=== PATIENT | female | born 1935 | race Caucasian/White ===

== ENCOUNTER 2019-11-16 17:50 | Inpatient (IN) ==
[2019-11-16] MEDS ORDERED: ONDANSETRON INJ 2 MG/ML 2 ML VIAL IV PRN (22:56)
[2019-11-16] MEDS ORDERED: POLYETHYLENE (MIRALAX) 17 GM PACK PO PRN (22:56)
[2019-11-16] MEDS ORDERED: MECLIZINE HCL 25 MG TAB PO PRN (23:01)
[2019-11-16 23:17] LABS: Hematocrit (blood only) 30.5 % (37-47); Hemoglobin 9.7 g/dL (12.0-16.0); Mean Corpuscular Hemoglobin 29.3 pg (25-34); Mean Corpuscular Hgb Conc 31.8 g/dL (32-36); Mean Corpuscular Volume 92.1 fL (80-100); Mean Platelet Volume 11.4 fL (7.4-10.4); Platelet Count 162 K/uL (130-400); RDW Coefficient of Variation 13.9 % (11.5-14.5); Red Blood Count 3.31 M/uL (4.2-5.4); White Blood Count 10.56 K/uL (4.8-10.8)
[2019-11-16 23:26] LABS: INR 1.1 (0.9-1.1); Partial Thromboplastin Ratio 0.8; Partial Thromboplastin Time 22.4 Seconds (21.0-31.0); Prothrombin Time 11.4 Seconds (9.0-12.0)
[2019-11-16 23:34] LABS: Albumin Level 3.2 gm/dl (3.4-5.0); BUN Creatinine Ratio 23.1 (10-20); Calcium 8.5 mg/dl (8.5-10.1); Creatinine Clr Calc Pharmacy 35.1 ml/min; Est GFR (African American) 66.2; Est GFR (Non-African American) 57.1
[2019-11-16 23:45] LABS: Albumin Globulin Ratio 0.9 (0.9-2); Bilirubin,Total 0.6 mg/dl (0.2-1); Globulin 3.5 gm/dl (2.5-4.0); Thyroid Stimulating Hormone 1.36 uIu/ml (0.300-4.500); Total Protein 6.7 gm/dl (6.4-8.2)
[2019-11-16 23:49] LABS: Basophils # (auto) 0.02 K/uL (0-0.2); Basophils % (auto) 0.2 %; Immature Granulocytes # (auto) 0.03 K/uL (0.00-0.02); Immature Granulocytes % (auto) 0.3 %; Lymphocytes # (auto) 0.61 K/uL (1.2-3.4); Lymphocytes % (auto) 5.8 %; Monocytes # (auto) 0.51 K/uL (0.11-0.59); Monocytes % (auto) 4.8 %; Neutrophils # (auto) 9.39 K/uL (1.4-6.5); Neutrophils % (auto) 88.9 %
[2019-11-16] MEDS: SODIUM CHLORIDE 0.9% 1000ML 1,000 ML IV SCH (23:55)
--- NOTE | 2019-11-17 00:32 | History and Physical Report ---
DATE OF ADMISSION: 11/16/2019 CHIEF COMPLAINT: Status post fall and right hip fracture. HISTORY OF PRESENT ILLNESS: This 84-year-old female with past medical history significant for senile osteoporosis, vitamin D deficiency, bilateral hearing loss, history of left hip fracture, who was transferred from [facility] for right hip fracture. The patient lives alone. She has a walker and cane at home. Generally, she does not use it, but since last one week she is using cane because she was feeling dizzy and her family doctor gave her meclizine .. She lives alone. One daughter lives close across the street, today she went to water her plants and go and she was going to go back home and her side walk is little raised and she tripped over it and fell down and she could not get up and she yelled for help, and stayed there for about almost of an hour and then she was taken to the [facility]. On the way to [facility], she was nauseous and had some vomiting. In the [facility], CT of the head and CT of the cervical spine was unremarkable and the x-rays showed displaced intertrochanteric fracture of the right hip and was transferred to [facility]. The patient is currently resting comfortably and hemodynamically stable. She says she did not have much pain now. Otherwise, she says she is doing fine. Denies any other complaints. She says she is on regular diet. She can swallow okay. Denies any cough, no fever, no chills, no shortness of breath, no chest pain, no loss of sense of smell or taste. No headache. She uses glasses for vision. Somewhat hard of hearing. No runny nose, no sore throat. No abdominal pain. Normal bowel and bladder movements. No blood in the stools or burning micturition. No rash anywhere. Also spoke with her daughter, Ms. Juarez who confirmed what happened and the daughter says the patient has a note at home that she is DNR, but when asked about whether there is a chance of recovery still they want to be DNR, but daughter says only for a very short period of time she can be full code if there is a chance of recovery. ALLERGIES: IBUPROFEN AND VALIUM. PAST MEDICAL HISTORY: As mentioned above. Hypothyroidism. PAST SURGICAL HISTORY: Fracture of the left hip and total hip replacement, fracture of the left wrist, and radius and ulna fixation. MEDICATIONS: The patient is currently on alendronate 70 mg p.o. weekly, levothyroxine 25 mcg p.o. daily, meclizine 25 mg p.o. t.i.d. p.r.n. FAMILY HISTORY: Significant for father had lung cancer, in his 70s and also family history all significant for thyroid problems. Mother had breast cancer, heart disorder, at age of 81. REVIEW OF SYMPTOMS: As per HPI. Rest of review of symptoms negative. PHYSICAL EXAMINATION: GENERAL: The patient is old and frail, not in acute distress. VITAL SIGNS: temperature 36.4, respiratory rate 20, blood pressure 125/69, oxygen 95% on room air. HEENT: No pallor, no icterus. NECK: No JVD, no neck masses. CARDIOVASCULAR: S1, S2 heard, regular rate and rhythm, no murmur, no gallop. RESPIRATORY SYSTEM: Normal AP diameter. No accessory muscle use. No wheezing, no crackles. ABDOMEN: Soft, bowel sounds present, nontender. No distention. CENTRAL NERVOUS SYSTEM: Alert and oriented x3. Can tell today is October 2019, but has some difficulty with dates, can tell her date of , obeys simple commands. Speech is clear. Insight is good. EXTREMITIES: Right lower extremity is shortened and externally rotated. No erythema seen. No edema seen. LABORATORY DATA: Unavailable at this time. ASSESSMENT AND PLAN: This is an 84-year-old female who presents with fall at home, mechanical fall and found to have right hip fracture at [facility]. 2. Right hip fracture: The patient currently is not in pain. We will follow the labs and EKG and chest x-ray. If they are unremarkable, patient should be at acceptable risk to proceed with surgery. Does not have any significant medical problems. 3. Hypothyroidism: Continue Synthroid. 4. History of dizziness: On meclizine p.r.n. 6. Osteoporosis: On alendronate. We will also add calcium and vitamin D. 7. Deep venous thrombosis prophylaxis: Cannot place sequential compression devices because of hip fracture and cannot place anticoagulation because of plan for surgery in a.m. Postop deep venous thrombosis prophylaxis as per Orthopedics. DISPOSITION: Admit to medical floor. PT and OT prior to discharge. Social Service to help with discharge planning. Code status, full code for now only if there is a chance of recovery. MTDD
[2019-11-17] MEDS: MoRPHine SULFATE 2 MG/ML CARP IV PRN ×2 (02:55→19:49)
[2019-11-17] MEDS ORDERED: CEFAZOLIN 1000MG 1,000 MG/7.5 ML SYR IV SCH (06:00)
[2019-11-17] MEDS: LEVOTHYROXINE SODIUM 25 MCG TABLET PO SCH (06:13)
--- NOTE | 2019-11-17 07:44 | XRay Report ---
XR femur RT 2V routine, XR hip 1V RT w pelvis CLINICAL HISTORY: right hip fracture/fall COMPARISON STUDY: None. FINDINGS: Comminuted, displaced, angulated intertrochanteric fracture of the proximal right femur. No dislocation. Soft tissue swelling within the right hip. The mid to distal right femur is intact. Jordyn or internal fixation of an old, healed left hip fracture. Deformity within the right pubic ring likel y represents old, healed fractures. IMPRESSION: Comminuted, displaced, and angulated intertrochanteric fracture of the proximal right fe mur. ACT 112: Negative or not required by law. Electronically signed by: Howard Tirado M.D. 11/17/2019 7:43 AM
[2019-11-17] MEDS: CALCIUM 600MG + VIT D 400 IU TAB PO SCH ×2 (08:24→21:14)
--- NOTE | 2019-11-17 08:34 | XRay Report ---
XR chest 1V portable CLINICAL HISTORY: Preoperative evaluation. COMPARISON STUDY: Chest radiograph November 16, 2019. FINDINGS: Lung volumes are normal. Minimal linear left basilar opacity suggest atelectasis. There is no pneumothorax or pleural effusion. Cardiac size is normal. Mediastinal contours are normal. There i s no evidence for pulmonary edema. Incidental note is made of old bilateral rib fractures. IMPRESSION: No acute cardiopulmonary findings. ACT 112: Negative or not required by law. Electronically signed by: Freedom Whitley M.D. 11/17/2019 8:32 AM
--- NOTE | 2019-11-17 09:38 | Electrocardiogram Report ---
Test Reason : Blood Pressure : / mmHG Vent. Rate : 094 BPM Atrial Rate : 094 BPM P-R Int : 122 ms QRS Dur : 066 ms QT Int : 370 ms P-R-T Axes : 070 016 067 degrees QTc Int : 462 ms Normal sinus rhythm Diffuse Nonspecific ST and T wave abnormality Abnormal ECG Confirmed by Sukumar Lucas ([id number]) on 11/17/2019 9:37:51 AM Referred By: Simón Torres Confirmed By:Sukumar Lucas
--- NOTE | 2019-11-17 10:04 | Hospitalist Progress Note ---
Date of Service November 17, 2019 Assessment & Plan (1) Hip fracture: ASSESSMENT AND PLAN: This is an 84-year-old female who presents with fall at home, mechanical fall and found to have right hip fracture at [facility]. 2. Right hip fracture: Monitor daily labs, May proceed to OR from IM standpoint, Benefit>Risk 3. Hypothyroidism: Continue Synthroid. 4. History of dizziness: On meclizine p.r.n. 6. Osteoporosis: On alendronate. We will also add calcium and vitamin D. 7. Deep venous thrombosis prophylaxis: Cannot place sequential compression devices because of hip fracture and cannot place anticoagulation because of plan for surgery in a.m. Postop deep venous thrombosis prophylaxis as per Orthopedics. DISPOSITION: Medical floor. PT and OT prior to discharge. Social Service to help with discharge planning. Code status, full code for now only if there is a chance of recovery. Labs Checked ROS-No Headache, No Visual Changes, No Nausea, No Vomiting, No Fever, No Chills, No Neck Pain or Stiffness, No Chest Pain, No Palpitations, No SOB, No TUBBS, No Cough, No Sputum, No Wheezing, No Abdominal Pain, No Diarrhea, No Hematemesis, No Hemoptysis, No Unexpected Weight Loss, No Flank pain, No Melena, No Hematochezia, No Frequency, No Urgency, No Burning, No Hematuria, No Rashes, No Diaphoresis. Appetite is Normal, Sore R Hip Physical Exam Gen-AAO x 3, NAD, Afebrile, Pleasant Head-NCAT, EOMI, PERRLA, Anicteric Sclera, No Posterior Pharyngeal Erythema Neck-Supple, No JVD, No Thyromegaly, No Masses, No LAD, No Bruits Lungs-Clear to Auscultation Bilaterally, No Rales, No Rhonchi, No Wheezing, No Crepitus Chest-No S4, +S1, +S2, No S3, No Murmurs, No Rubs, No Gallops, No Ectopy Abdomen-Soft, Bowel Sounds Present, Non Tender, Non Distended, No Hepatomegaly, No Splenomegaly, No Palpable Masses, No Rebound, No Rigidity, No Guarding Musculoskeletal-Full Range of Motion Bilaterally, No CVAT Extremities-No Cyanosis, No Clubbing, No Edema Nuero-Cranial Nerves II-XII grossly intact, Motor WNL, DTRs WNL, Strength WNL, Non Focal Psych-Normal Mood Admission and Anticipated Discharge Date Admission Date: November 16, 2019 Results & Data Results & Data ([facility]) Vital Signs (Past 12 Hours) Vital Signs Temp Pulse Resp BP Pulse Ox 11/17/19 07:34 36.9 C 102 H 18 123/66 96
[2019-11-17] MEDS: SODIUM CHLORIDE 0.9% 1000ML 1,000 ML IV SCH ×2 (12:46→21:15)
--- NOTE | 2019-11-17 13:07 | Anesthesiology Consultation ---
Date of Service November 17, 2019 Assessment & Plan (1) Encounter for pre-operative examination: History Surgery Operation Date: 11/17/19 10:00 Proposed Procedures p Right Hip Trochanteric Nail Cricket - El Mann DO Height/Weight Height: 5 ft 2 in Weight: 52.8 kg Allergies Allergy/AdvReac Type Severity Reaction Status Date / Time No Known Allergies Allergy Unverified 11/16/19 22:55 Medications Home Medications Medication Instructions Recorded Confirmed Last Taken alendronate 70 mg PO WK 11/16/19 11/16/19 Unknown levothyroxine 25 mcg PO DAILY 11/16/19 11/16/19 Unknown meclizine 25 mg PO TID PRN 11/16/19 11/16/19 Unknown Active Medications Generic Name Dose Route Start Last Admin Trade Name Freq PRN Reason Stop Dose Admin Sodium Chloride 1,000 mls @ 80 mls/hr 11/16/19 22:56 11/17/19 12:46 Nss 1000ml IV 12/16/19 22:55 80 mls/hr .[id number] CONCETTA Administration Levothyroxine Sodium 25 mcg 11/17/19 06:30 11/17/19 06:13 Synthroid PO 12/17/19 06:29 25 mcg DAILYBB CONCETTA Administration Morphine Sulfate 2 mg 11/16/19 22:56 11/17/19 02:55 Morphine Sulfate IV 11/30/19 22:55 2 mg Q4H PRN Administration Pain Multivitamins/Minerals 1 tab 11/17/19 09:00 11/17/19 08:24 Caltrate Plus PO 12/17/19 08:59 Not Given BID CONCETTA NPO Date Last Intake of Fluids: 11/17/19 Time Last Intake of Fluids: 00:00 Date Last Intake of Solids: 11/16/19 Past Medical History hx hypothyrodisim hx osteoporosis hx fall with R hip fracture hx dizziness Social History Smoking Status: Never smoker Hx Alcohol Use: No Hx Substance Use: No Physical Exam Vital Signs Last Vital Signs Temp 36.8 C 11/17/19 14:25 Pulse 109 H 11/17/19 14:25 Resp 20 11/17/19 14:25 BP 136/79 11/17/19 14:25 Pulse Ox 97 11/17/19 14:25 Testing Laboratory Results 11/16/19 23:07 11/16/19 23:07 PT 11.4 Seconds (9.0-12.0) 11/16/19 23:07 INR 1.1 (0.9-1.1) 11/16/19 23:07 APTT 22.4 Seconds (21.0-31.0) 11/16/19 23:07 Blood Type A Positive 11/17/19 09:54 Antibody Screen NEGATIVE 11/17/19 09:54 Electrocardiogram Date: 11/16/19 Normal sinus rhythm Diffuse Nonspecific ST and T wave abnormality Abnormal ECG Chest X-Ray Date: 11/17/19 Findings: + NAD
[2019-11-17] MEDS ORDERED: fentaNYL citrate 100 MCG/2 ML VIAL ONE (14:18)
--- NOTE | 2019-11-17 14:45 | Orthopedic Consultation ---
Date of Consultation November 17, 2019 Assessment & Plan (1) Closed intertrochanteric fracture of right femur: The patient is a 84yo female with displaced right intertrochanteric hip fracture sustained after a fall from standing height. The patient was medically stabilized on 11/17/2019. I indicated the patient for right hip cephalomedullary nail. The patient and daughter was informed of the risks and benefits of surgery, which include but not limited to infection, bleeding, blood clots, damage to nerves, vessels, bone and soft tissue, dislocation, leg length discrepancy, malunion, nonunion, failure of the implants, need for additional surgery and . The patient and daughter collectively chose to proceed with surgical intervention and informed consent was obtained. History of Present Illness Reason for Consultation: Right intertrochanteric hip fracture Attending Physician: Florencio Anderson DO History of Present Illness The patient is an 84-year-old female who presented to [facility] on 11/16/2019 after sustaining a mechanical fall from standing height while watering her yard yesterday. She initially was seen at [facility], diagnosed with right intertrochanteric hip fracture and transferred to [facility] for further care of her right hip fracture. Patient denies hitting head or loss of consciousness. Denies any associated injuries or numbness and tingling to her right lower extremity. Pain well controlled. Allergies Allergy/AdvReac Type Severity Reaction Status Date / Time No Known Allergies Allergy Unverified 11/16/19 22:55 Home Medications Home Medications Medication Instructions Recorded Confirmed Type alendronate 70 mg PO WK 11/16/19 11/16/19 History levothyroxine 25 mcg PO DAILY 11/16/19 11/16/19 History meclizine 25 mg PO TID PRN 11/16/19 11/16/19 History Patient History Social History Preferred Language: Chinese Communication Ability: Effective Beliefs That Will Affect Care: None Current Living Situation: Alone Other Information That Helps Us Care for You: No Feels Safe at Home: Yes Safety Concerns: Feels Safe At This Time Smoking Status: Never smoker Hx Alcohol Use: No Hx Substance Use: No Review of Systems Review of Systems: All systems reviewed & are unremarkable except as noted in HPI & below Constitutional: as per Subjective / HPI Physical Exam Physical Exam: RLE NVSI +EHL/FHL/TA/GS SILT grossly, +2 DP pulse, compartments soft nontender, short and externally rotated, skin overlying right hip clean dry and intact. Constitutional: WD/WN, vitals as above Results & Data ([facility]) Vital Signs (Past 12 Hours) Vital Signs Temp Pulse Pulse Resp BP Pulse Ox 11/17/19 14:25 36.8 C 109 H 20 136/79 97 11/17/19 07:34 36.9 C 102 H 18 123/66 96 Laboratory Results Lab Results 11/16/19 11/16/19 11/16/19 Range/Units 23:07 23:07 23:07 WBC 10.56 (4.8-10.8) K/uL RBC 3.31 L (4.2-5.4) M/uL Hgb 9.7 L (12.0-16.0) g/dL Hct 30.5 L (37-47) % MCV 92.1 (80-100) fL MCH 29.3 (25-34) pg MCHC 31.8 L (32-36) g/dL RDW Std Deviation 47.0 H (36.4-46.3) fL RDW Coeff of Van 13.9 (11.5-14.5) % Plt Count 162 (130-400) K/uL MPV 11.4 H (7.4-10.4) fL Immature Gran % (Auto) 0.3 % Neut % (Auto) 88.9 % Lymph % (Auto) 5.8 % [place] % (Auto) 4.8 % Eos % (Auto) 0.0 % Baso % (Auto) 0.2 % Neut # (Auto) 9.39 H (1.4-6.5) K/uL Lymph # (Auto) 0.61 L (1.2-3.4) K/uL [place] # (Auto) 0.51 (0.11-0.59) K/uL Eos # (Auto) 0.00 (0-0.5) K/uL Baso # (Auto) 0.02 (0-0.2) K/uL Immature Gran # (Auto) 0.03 H (0.00-0.02) K/uL PT 11.4 (9.0-12.0) Seconds INR 1.1 (0.9-1.1) APTT 22.4 (21.0-31.0) Seconds PTT Ratio 0.8 Sodium 140 (136-145) mmol/L Potassium 4.0 (3.5-5.1) mmol/L Chloride 106 (98-107) mmol/L Carbon Dioxide 27 (21-32) mmol/L Anion Gap 7.0 (3-11) BUN 21 H (7-18) mg/dl Creatinine 0.91 (0.6-1.2) mg/dl Est Cr Clr Drug Dosing 35.1 ml/min Est GFR ( Amer) 66.2 Est GFR (Non-Af Amer) 57.1 BUN/Creatinine Ratio 23.1 H (10-20) Glucose 181 H (70-99) mg/dl Calcium 8.5 (8.5-10.1) mg/dl Total Bilirubin 0.6 (0.2-1) mg/dl AST 18 (15-37) U/L ALT 18 (12-78) U/L Alkaline Phosphatase 51 (45-117) U/L Total Protein 6.7 (6.4-8.2) gm/dl Albumin 3.2 L (3.4-5.0) gm/dl Globulin 3.5 (2.5-4.0) gm/dl Albumin/Globulin Ratio 0.9 (0.9-2) TSH 1.360 (0.300-4.500) uIu/ml Blood Type Blood Type Recheck Antibody Screen 11/16/19 11/17/19 Range/Units 23:07 09:54 WBC (4.8-10.8) K/uL RBC (4.2-5.4) M/uL Hgb (12.0-16.0) g/dL Hct (37-47) % MCV (80-100) fL MCH (25-34) pg MCHC (32-36) g/dL RDW Std Deviation (36.4-46.3) fL RDW Coeff of Van (11.5-14.5) % Plt Count (130-400) K/uL MPV (7.4-10.4) fL Immature Gran % (Auto) % Neut % (Auto) % Lymph % (Auto) % [place] % (Auto) % Eos % (Auto) % Baso % (Auto) % Neut # (Auto) (1.4-6.5) K/uL Lymph # (Auto) (1.2-3.4) K/uL [place] # (Auto) (0.11-0.59) K/uL Eos # (Auto) (0-0.5) K/uL Baso # (Auto) (0-0.2) K/uL Immature Gran # (Auto) (0.00-0.02) K/uL PT (9.0-12.0) Seconds INR (0.9-1.1) APTT (21.0-31.0) Seconds PTT Ratio Sodium (136-145) mmol/L Potassium (3.5-5.1) mmol/L Chloride (98-107) mmol/L Carbon Dioxide (21-32) mmol/L Anion Gap (3-11) BUN (7-18) mg/dl Creatinine (0.6-1.2) mg/dl Est Cr Clr Drug Dosing ml/min Est GFR ( Amer) Est GFR (Non-Af Amer) BUN/Creatinine Ratio (10-20) Glucose (70-99) mg/dl Calcium (8.5-10.1) mg/dl Total Bilirubin (0.2-1) mg/dl AST (15-37) U/L ALT (12-78) U/L Alkaline Phosphatase (45-117) U/L Total Protein (6.4-8.2) gm/dl Albumin (3.4-5.0) gm/dl Globulin (2.5-4.0) gm/dl Albumin/Globulin Ratio (0.9-2) TSH (0.300-4.500) uIu/ml Blood Type A Positive Blood Type Recheck A Positive Antibody Screen NEGATIVE Diagnostic Findings XR femur RT 2V routine, XR hip 1V RT w pelvis CLINICAL HISTORY: right hip fracture/fall COMPARISON STUDY: None. FINDINGS: Comminuted, displaced, angulated intertrochanteric fracture of the proximal right femur. No dislocation. Soft tissue swelling within the right hip. The mid to distal right femur is intact. Prior internal fixation of an old, healed left hip fracture. Deformity within the right pubic ring likely represents old, healed fractures. IMPRESSION: Comminuted, displaced, and angulated intertrochanteric fracture of the proximal right femur. XR femur RT 2V routine, XR hip 1V RT w pelvis CLINICAL HISTORY: right hip fracture/fall COMPARISON STUDY: None. FINDINGS: Comminuted, displaced, angulated intertrochanteric fracture of the proximal right femur. No dislocation. Soft tissue swelling within the right hip. The mid to distal right femur is intact. Prior internal fixation of an old, healed left hip fracture. Deformity within the right pubic ring likely represents old, healed fractures.
--- NOTE | 2019-11-17 14:46 | History & Physical Bridge Note ---
Date of Service November 17, 2019 History & Physical Bridge Note I have examined the patient, reviewed the History & Physical and in the interval since the performance of the History & Physical I have noted the following changes of clinical significance: no changes noted
[2019-11-17] MEDS ORDERED: LIDOCAINE HCL 2% 2 ML VIAL/AMP(20MG/ML) INFIL ONE (14:53)
[2019-11-17] MEDS ORDERED: PROPOFOL IV EMULSION 10 MG/ML 20 ML VIAL IV ONE (14:53)
[2019-11-17] MEDS ORDERED: MIDAZOLAM HCL 1 MG/ML 2ML VIAL ONE (14:54)
[2019-11-17] MEDS ORDERED: BUPIVACAINE 0.5 % 5 MG/1 ML PF 10ML VIAL ONE (15:05)
[2019-11-17] MEDS ORDERED: BACITRACIN INJ 50,000 UNIT VIAL ONE (15:06)
[2019-11-17] MEDS ORDERED: BUPIVACAINE/EPINEPHRINE 0.25% 1:200,000 30 ML VIAL ONE (15:08)
--- NOTE | 2019-11-17 17:22 | Post Operative Brief Note ---
Immediate Post Op Note v1 Date of Surgery November 17, 2019 Pre & Post Diagnosis Operation Date: 11/17/19 10:00 Pre-Op Diagnosis: Right hip fracture Post-Op Diagnosis: Right hip fracture I identified the patient and participated in the time-out.: Yes Procedure Operation Date: 11/17/19 10:00 Actual Procedures p Right Hip Long Trochanteric Nail (Right) - El Mann DO Surgeon El Mann DO Paste Up Artist Hugh Avalos Estimated Blood Loss 90 Findings Consistent with Post-Op Diagnosis Fluids 1000 cc LR Specimens none Anesthesia Type Spinal MAC Complications none Disposition Disposition: Recovery Room Overlapping Procedure I was present for: the critical portions of procedure. I was immediately available: during the entire case. Back up surgeon: was not required during procedure.
--- NOTE | 2019-11-17 17:25 | Fluoroscopy Report ---
INTRAOPERATIVE RADIOGRAPHS CLINICAL HISTORY: Open reduction and internal fixation of the right femur. Fluoroscopy time: 239 seconds. FINDINGS: 6 spot fluoroscopic views of the right femur are correlated with right femoral radiographs dated 11/17/2019. Intertrochanteric and intramedullary nails have been placed transfixing a comminuted intertrochanteric fracture. Near-anatomic alignment has been restored. There is persistent medial di straction of the lesser trochanter. 2 cortical lag screws transfix the distal end of the intramedulla ry nail. IMPRESSION: Intraoperative images from open reduction and internal fixation of the right femur as abo ve. Electronically signed by: Chan Mao M.D. 11/17/2019 5:24 PM
--- NOTE | 2019-11-17 17:25 | Operative Report ---
Post Operative Report Pre & Post Diagnosis Operation Date: 11/17/19 10:00 Pre-Op Diagnosis: Right hip fracture Post-Op Diagnosis: Right hip fracture I identified the patient and participated in the time-out.: Yes Procedure Operation Date: 11/17/19 10:00 Actual Procedures p Right Hip Trochanteric Nail (Right) - El Mann DO Surgeon El Mann DO Knitter Mechanic Hugh Avalos Estimated Blood Loss 90 Findings Consistent with Post-Op Diagnosis Specimens None Anesthesia Type Spinal MAC Complications none Disposition Disposition: Recovery Room Indications The patient is a 84 yo female with displaced comminuted right intertrochanteric hip fracture sustained after a fall from standing height. The patient was medically stabilized on 11/17/2019. I indicated the patient for right hip cephalomedullary nail. The patient and daughter was informed of the risks and benefits of surgery, which include but not limited to infection, bleeding, blood clots, damage to nerves, vessels, bone and soft tissue, dislocation, leg length discrepancy, malunion, nonunion, failure of the implants, need for additional surgery and . The patient and daughter collectively chose to proceed with surgical intervention and informed consent was obtained. Description of Procedure Following induction of adequate spinal anesthesia, the patient was placed on the fracture table. The left leg was placed in the well leg ovalle and the right leg in the traction leg ovalle. All bony prominences were protected. Utilizing c-arm fluoroscopy closed reduction of the fracture was performed utilizing tension and internal/external rotation. Once satisfied with fracture reduction the right hip and thigh was prepped and draped in the usual sterile manner. A time out was performed, the patient identified, site donald confirmed and appropriate antibiotics given. The incision was made from the tip of the greater trochanter proximally. Subcutaneous tissue was sharply dissected to the tip of the greater trochanter, electrocautery used for hemostasis. Under fluoroscopic guidance the drill tipped guidewire was inserted at the tip of the greater trochanter and advanced into the intramedullary canal. Utilizing the intramedullary drill the guidewire was overdrilled with tissue protector attached. All instruments were removed. Next a long ball-tipped guidewire was passed through the proximal opening intramedullary beyond the fracture site to the proximal pole of the patella. Guidewire position was confirmed utilizing C- arm fluoroscopy. Guidewire was measured at this time to determine length of the nail at 260 mm. An x-ray approximately was performed to verify ruler was found to bone. Next utilizing flexible reamers sequential reaming was performed in .5mm increments, a final 12.5 mm reamer was passed the length of the canal. Care was taken to protect soft tissue proximally. A 11 by 260 mm long Synthes TFN was inserted and impacted into position and confirmed by c-arm fluoroscopy. Next the aiming arm was attached to the insertion handle. A incision was made and carried down through subcutaneous tissues to bone. The blade guide sleeve was inserted and secured down to bone. The guide wire was passed across the fracture site to the tip of the femoral head, position was confirmed in the AP and lateral planes utilizing c-arm fluoroscopy. The guide pin was measured and the 11.0mm drill bit passed over the guide pin to open lateral cortex followed by a 6.0mm/10.0mm cannulated reamer to a depth of 100 mm. Next the helical blade was inserted and locked proximally. Next position the C arm in anticipation for perfect [place] technique, care was taken to insure sterilility was maintained. Distally a stab incision was made in the skin and carried down to bone. Utilizing the radiolucent drill with a 4.0mm drill bit, both cortices were drilled through the proximal static hole. The nail was locked distally using a single 4.9mm x 38 mm locking bolt. Next utilizing perfect [place] technique a distal stab incision was made overlying the dynamic hole. Blunt dissection was carried down to bone. Utilizing the radiolucent drill with a 4.0 mm drill bit both cortices were drilled through the distal aspect of the dynamic hole. A single 4.9 mm x 40 mm locking bolt was placed through the dynamic hole. The aiming guide was removed at this time and final radiographs were obtained utilizing c-arm fluoroscopy to confirm overall position and fracture reduction. Incisions were irrigated with copious amounts of sterile saline solution. Subcutaneous tissue were injected utilizing 0.25 Marcaine with epi. Deep closure was performed using #1 Vicryl followed by 2-0 Vicryl for subcutaneous tissues and arminda in the skin. Sterile dressing, Xeroform gauze, 4x4s and Tegaderms. The patient tolerated the procedure well and was transported to the PACU in stable condition. Due to the complex nature of the procedure, the entire surgery was performed with the operational assistance of Hugh Avalos PA-C. The management assistant, under direct supervision, was involved in the actual performance of all aspects of the surgical procedure including patient positioning, hemostasis, tissue retraction, instrument management and wound closure. I attest to the content of the Intraoperative Record and any orders documented therein. Any exceptions are noted below.
--- NOTE | 2019-11-17 17:42 | Anesthesiology Progress Note ---
Date of Service November 17, 2019 Anesthesia Post Procedure Vital Signs Vital Signs: Temp Pulse Pulse Pulse Resp BP BP 11/17/19 17:35 36.2 C L 100 H 13 116/62 11/17/19 17:25 97 H 12 102/67 11/17/19 17:15 36.2 C L 98 H 10 L 111/58 L 11/17/19 14:25 36.8 C 109 H 20 136/79 11/17/19 07:34 36.9 C 102 H 18 123/66 11/16/19 21:15 36.4 C L 20 125/69 Pulse Ox 11/17/19 17:35 100 11/17/19 17:25 100 11/17/19 17:15 100 11/17/19 14:25 97 11/17/19 07:34 96 11/16/19 21:15 95 Pain Intensity Right Hip: Pain Intensity: 2 Transfer of Care Handoff Completed per policy Notes Mental Status: alert / awake / arousable Patient Amnestic to Procedure: Yes Nausea / Vomiting: adequately controlled Pain: adequately controlled Airway Patency, RR, SpO2: stable & adequate BP & HR: stable & adequate Hydration State: stable & adequate Neuraxial Anesthesia: was administered and sensory block is resolving Anesthetic Complications: no major complications apparent
[2019-11-17] MEDS ORDERED: ONDANSETRON INJ 2 MG/ML 2 ML VIAL IV STA (18:05)
[2019-11-17] MEDS ORDERED: NALOXONE HCL 0.4 MG/1 ML VIAL/CARP IV PRN (18:20)
--- NOTE | 2019-11-17 18:38 | XRay Report ---
RIGHT HIP 2 VIEWS; RIGHT FEMUR 2 VIEWS CLINICAL HISTORY: Postoperative examination. FINDINGS: AP and crosstable lateral views of the right hip with AP and crosstable lateral views of th e right femur are obtained. Comparison is made to preoperative examination from earlier the same day 11/17/2019. The skeletal structures are osteopenic. Intertrochanteric and intramedullary nails have be en placed transfixing a comminuted intertrochanteric fracture. There is significantly improved alignm ent status post external fixation. Mild angulation persists. There is medial distraction of the lesse r trochanter. The visualized right hemipelvis appears intact. The distal femur is maintained. 2 corti [place]ott[place] lag screws transfix the distal end of the intramedullary nail. Overlying soft tissue edema, subcu taneous gas glass, and skin clips are expected postoperative findings. The hip and knee joints are gr ossly preserved. IMPRESSION: 1. Expected postoperative findings status post open reduction and internal fixation of an intertrocha nteric right femoral fracture as above. 2. The orthopedic hardware appears intact. 3. No new fracture is seen. Electronically signed by: Chan Mao M.D. 11/17/2019 6:36 PM
[2019-11-17] MEDS ORDERED: PROMETHAZINE HCL 12.5 MG in SODIUM CHLORIDE 0.9% 50 ML IV STA (19:37)
--- NOTE | 2019-11-17 20:33 | Orthopedic Progress Note ---
Date of Service November 17, 2019 Assessment & Plan (1) Closed intertrochanteric fracture of right femur: s/p Right hip long cephalomedullary nail -ancef x 24 -DVT ppx: SCDs, TEDs, Lovenox daily -TTNWB RLE -PT/OT -PO XR demonstrates well aligned well fixed implant, reduction of fracture, no new fracture/dislocation -am labs Admission and Anticipated Discharge Date Admission Date: November 16, 2019 Subjective Post Operative Progress Note Patient seen in PACU, comfortable, denies complaints, pain well controlled, no acute issues. Review of Systems Review of Systems: All systems reviewed & are unremarkable except as noted in HPI & below Constitutional: as per Subjective / HPI Physical Exam Physical Exam: RLE NVSI +EHL/FHL/TA/GS SILT grossly, +2 DP pulse, compartments soft NT, dressing cdi. Constitutional: WD/WN, vitals as above Results & Data ([facility]) Vital Signs (Past 12 Hours) Vital Signs Temp Pulse Pulse Resp BP Pulse Ox 11/17/19 20:22 36.4 C L 102 H 20 105/65 94 11/17/19 19:29 37.0 C 102 H 19 94/56 L 96 11/17/19 18:41 36.4 C L 104 H 18 92/57 L 95 11/17/19 18:10 36.5 C 105 H 14 99/60 L 95 11/17/19 17:55 36.3 C L 99 H 20 105/52 L 98 11/17/19 17:45 103 H 14 116/84 94 11/17/19 17:35 36.2 C L 100 H 13 116/62 100 11/17/19 17:25 97 H 12 102/67 100 11/17/19 17:15 36.2 C L 98 H 10 L 111/58 L 100 11/17/19 14:25 36.8 C 109 H 20 136/79 97
[2019-11-17] MEDS: CEFAZOLIN 1000MG 1,000 MG/7.5 ML SYR IV SCH (23:18)
[2019-11-18] MEDS: MoRPHine SULFATE 2 MG/ML CARP IV PRN (04:03)
[2019-11-18] MEDS: LEVOTHYROXINE SODIUM 25 MCG TABLET PO SCH (06:17)
[2019-11-18] MEDS: SODIUM CHLORIDE 0.9% 1000ML 1,000 ML IV SCH (06:21)
[2019-11-18 06:27] LABS: Hematocrit (blood only) 19.9 % (37-47); Hemoglobin 6.2 g/dL (12.0-16.0); Mean Corpuscular Hemoglobin 29.5 pg (25-34); Mean Corpuscular Hgb Conc 31.2 g/dL (32-36); Mean Corpuscular Volume 94.8 fL (80-100); Platelet Count 129 K/uL (130-400); RDW Coefficient of Variation 14.5 % (11.5-14.5); RDW Standard Deviation 50.2 fL (36.4-46.3); White Blood Count 8.93 K/uL (4.8-10.8)
[2019-11-18] MEDS ORDERED: SODIUM CHLORIDE 0.9% 250 ML IV PRN (06:27)
[2019-11-18 06:28] LABS: Basophils # (auto) 0.02 K/uL (0-0.2); Basophils % (auto) 0.2 %; Giant Platelets 1+; Immature Granulocytes # (auto) 0.03 K/uL (0.00-0.02); Immature Granulocytes % (auto) 0.3 %; Lymphocytes # (auto) 1.55 K/uL (1.2-3.4); Lymphocytes % (auto) 17.4 %; Monocytes # (auto) 1.42 K/uL (0.11-0.59); Monocytes % (auto) 15.9 %; Neutrophils # (auto) 5.91 K/uL (1.4-6.5); Neutrophils % (auto) 66.2 %; Platelet Estimate Decreased (Normal)
[2019-11-18] MEDS ORDERED: ALENDRONATE SODIUM 70 MG TAB PO SCH (06:30)
[2019-11-18 06:43] LABS: BUN Creatinine Ratio 27.7 (10-20); Calcium 7.4 mg/dl (8.5-10.1); Creatinine Clr Calc Pharmacy 37.6 ml/min; Est GFR (African American) 71.9; Magnesium 2.3 mg/dl (1.8-2.4); Potassium 4.3 mmol/L (3.5-5.1)
[2019-11-18] MEDS ORDERED: FUROSEMIDE 20 MG in SYRINGE 0 ML IV ONE (06:45)
[2019-11-18 07:05] LABS: Estimated Average Glucose 114 mg/dl; Hemoglobin A1C 5.6 % (4.5-5.6)
[2019-11-18] MEDS ORDERED: ACETAMINOPHEN 325 MG TAB PO ONE (07:30)
--- NOTE | 2019-11-18 07:30 | Orthopedic Progress Note ---
Date of Service November 18, 2019 Assessment & Plan (1) Closed intertrochanteric fracture of right femur: s/p Right hip long cephalomedullary nail POD#1 -ancef x 24 -DVT ppx: SCDs, TEDs, Lovenox daily -Toe touch NWB RLE -PT/OT -PO XR demonstrates well aligned well fixed implant, reduction of fracture, no new fracture/dislocation -am labs - as above, hgb 6.2, transfuse per medical team. Admission and Anticipated Discharge Date Admission Date: November 16, 2019 Subjective Post Operative Progress Note Patient seen sitting up in bed, comfortable, denies complaints, pain well controlled, no acute issues. Denies F/C/N/V/SOB/CP. Review of Systems Review of Systems: All systems reviewed & are unremarkable except as noted in HPI & below Constitutional: as per Subjective / HPI Physical Exam Physical Exam: RLE NVSI +EHL/FHL/TA/GS SILT grossly, +2 DP pulse, compartments soft NT, dressing cdi. Constitutional: WD/WN, vitals as above Results & Data ([facility]) Vital Signs (Past 12 Hours) Vital Signs Temp Pulse Pulse Resp BP BP Pulse Ox 11/18/19 07:24 36.9 C 91 H 16 99/60 L 11/18/19 07:14 36.9 C 122 H 16 95/55 L 94 11/18/19 02:54 36.7 C 108 H 16 102/65 93 11/17/19 23:10 36.6 C 104 H 16 113/63 93 11/17/19 22:12 36.6 C 103 H 19 96/59 L 95 11/17/19 21:13 36.8 C 103 H 20 94/62 L 93 11/17/19 20:22 36.4 C L 102 H 20 105/65 94 11/17/19 19:29 37.0 C 102 H 19 94/56 L 96 Laboratory Results 11/18/19 11/18/19 11/18/19 Range/Units 05:55 05:55 05:55 WBC 8.93 (4.8-10.8) K/uL RBC 2.10 L (4.2-5.4) M/uL Hgb 6.2 L* D (12.0-16.0) g/dL Hct 19.9 L* (37-47) % MCV 94.8 (80-100) fL MCH 29.5 (25-34) pg MCHC 31.2 L (32-36) g/dL RDW Std Deviation 50.2 H (36.4-46.3) fL RDW Coeff of Van 14.5 (11.5-14.5) % Plt Count 129 L (130-400) K/uL MPV 12.0 H (7.4-10.4) fL Immature Gran % (Auto) 0.3 % Neut % (Auto) 66.2 % Lymph % (Auto) 17.4 % Moore % (Auto) 15.9 % Eos % (Auto) 0.0 % Baso % (Auto) 0.2 % Neut # (Auto) 5.91 (1.4-6.5) K/uL Lymph # (Auto) 1.55 (1.2-3.4) K/uL Moore # (Auto) 1.42 H (0.11-0.59) K/uL Eos # (Auto) 0.00 (0-0.5) K/uL Baso # (Auto) 0.02 (0-0.2) K/uL Immature Gran # (Auto) 0.03 H (0.00-0.02) K/uL Platelet Estimate Decreased L (Normal) Giant Platelets 1+ Sodium 144 (136-145) mmol/L Potassium 4.3 (3.5-5.1) mmol/L Chloride 115 H (98-107) mmol/L Carbon Dioxide 28 (21-32) mmol/L Anion Gap 1.0 L (3-11) BUN 24 H (7-18) mg/dl Creatinine 0.85 (0.6-1.2) mg/dl Est Cr Clr Drug Dosing 37.6 ml/min Est GFR ( Amer) 71.9 Est GFR (Non-Af Amer) 62.0 BUN/Creatinine Ratio 27.7 H (10-20) Glucose 130 H (70-99) mg/dl Estimat Average Glucose 114 mg/dl Hemoglobin A1c 5.6 (4.5-5.6) % Calcium 7.4 L (8.5-10.1) mg/dl Magnesium 2.3 (1.8-2.4) mg/dl Blood Type Blood Type Recheck Antibody Screen Crossmatch 11/17/19 11/16/19 Range/Units 09:54 23:07 WBC (4.8-10.8) K/uL RBC (4.2-5.4) M/uL Hgb (12.0-16.0) g/dL Hct (37-47) % MCV (80-100) fL MCH (25-34) pg MCHC (32-36) g/dL RDW Std Deviation (36.4-46.3) fL RDW Coeff of Van (11.5-14.5) % Plt Count (130-400) K/uL MPV (7.4-10.4) fL Immature Gran % (Auto) % Neut % (Auto) % Lymph % (Auto) % Moore % (Auto) % Eos % (Auto) % Baso % (Auto) % Neut # (Auto) (1.4-6.5) K/uL Lymph # (Auto) (1.2-3.4) K/uL Moore # (Auto) (0.11-0.59) K/uL Eos # (Auto) (0-0.5) K/uL Baso # (Auto) (0-0.2) K/uL Immature Gran # (Auto) (0.00-0.02) K/uL Platelet Estimate (Normal) Giant Platelets Sodium (136-145) mmol/L Potassium (3.5-5.1) mmol/L Chloride (98-107) mmol/L Carbon Dioxide (21-32) mmol/L Anion Gap (3-11) BUN (7-18) mg/dl Creatinine (0.6-1.2) mg/dl Est Cr Clr Drug Dosing ml/min Est GFR ( Amer) Est GFR (Non-Af Amer) BUN/Creatinine Ratio (10-20) Glucose (70-99) mg/dl Estimat Average Glucose mg/dl Hemoglobin A1c (4.5-5.6) % Calcium (8.5-10.1) mg/dl Magnesium (1.8-2.4) mg/dl Blood Type A Positive Blood Type Recheck A Positive Antibody Screen NEGATIVE Crossmatch See Detail
--- NOTE | 2019-11-18 08:24 | Anesthesiology Progress Note ---
Date of Service November 18, 2019 Anesthesia Post Procedure Vital Signs Vital Signs: Temp Pulse Pulse Pulse Resp BP BP 11/18/19 07:58 37.2 C 111 H 16 114/70 11/18/19 07:45 37.1 C 116 H 16 99/63 L 11/18/19 07:24 36.9 C 91 H 16 99/60 L 11/18/19 07:14 36.9 C 122 H 16 95/55 L 11/18/19 02:54 36.7 C 108 H 16 102/65 11/17/19 23:10 36.6 C 104 H 16 113/63 11/17/19 22:12 36.6 C 103 H 19 96/59 L 11/17/19 21:13 36.8 C 103 H 20 94/62 L 11/17/19 20:22 36.4 C L 102 H 20 105/65 11/17/19 19:29 37.0 C 102 H 19 94/56 L 11/17/19 18:41 36.4 C L 104 H 18 92/57 L 11/17/19 18:10 36.5 C 105 H 14 99/60 L 11/17/19 17:55 36.3 C L 99 H 20 105/52 L 11/17/19 17:45 103 H 14 116/84 11/17/19 17:35 36.2 C L 100 H 13 116/62 11/17/19 17:25 97 H 12 102/67 11/17/19 17:15 36.2 C L 98 H 10 L 111/58 L 11/17/19 14:25 36.8 C 109 H 20 136/79 Pulse Ox 11/18/19 07:58 92 11/18/19 07:45 93 11/18/19 07:24 11/18/19 07:14 94 11/18/19 02:54 93 11/17/19 23:10 93 11/17/19 22:12 95 11/17/19 21:13 93 11/17/19 20:22 94 11/17/19 19:29 96 11/17/19 18:41 95 11/17/19 18:10 95 11/17/19 17:55 98 11/17/19 17:45 94 11/17/19 17:35 100 11/17/19 17:25 100 11/17/19 17:15 100 11/17/19 14:25 97 Pain Intensity Right Hip: Pain Intensity: 3 Notes Mental Status: alert / awake / arousable and participated in evaluation Patient Amnestic to Procedure: Yes Nausea / Vomiting: adequately controlled Pain: adequately controlled Airway Patency, RR, SpO2: stable & adequate BP & HR: stable & adequate Hydration State: stable & adequate Neuraxial Anesthesia: was administered and sensory block resolved Anesthetic Complications: no major complications apparent and Pt Satisfied with anesthetic care
[2019-11-18] MEDS: CALCIUM 600MG + VIT D 400 IU TAB PO SCH ×2 (08:43→21:22)
[2019-11-18] MEDS: ENOXAPARIN INJ 30 MG/0.3 ML SYR SQ SCH (08:43)
--- NOTE | 2019-11-18 10:25 | Hospitalist Progress Note ---
Date of Service November 18, 2019 Assessment & Plan (1) Hip fracture: ASSESSMENT AND PLAN: This is an 84-year-old female who presents with fall at home, mechanical fall and found to have right hip fracture at [facility]. 2. Right hip fracture: Monitor daily labs, May proceed to OR from IM standpoint, Benefit>Risk 3. Post op Blood Loss anemia-Blood ordered 4. History of dizziness: On meclizine p.r.n. 5. Hypothyroid-HRT 6. Osteoporosis: On alendronate. We will also add calcium and vitamin D. Resume Post Op Care per Surgery Protocol Incentive Spirometry 10x per Hour Resume Relative Home Meds Where Appropriate PT/OT with appropriate fall precautions Transition from IV to PO Pain control DVT Prophylaxis Per Surgery Protocol Monitor Daily Labs ROS-No Headache, No Visual Changes, No Nausea, No Vomiting, No Fever, No Chills, No Neck Pain or Stiffness, No Chest Pain, No Palpitations, No SOB, No TUBBS, No Cough, No Sputum, No Wheezing, No Abdominal Pain, No Diarrhea, No Hematemesis, No Hemoptysis, No Unexpected Weight Loss, No Flank pain, No Melena, No Hematochezia, No Frequency, No Urgency, No Burning, No Hematuria, No Rashes, No Diaphoresis. Appetite is Normal, Sore R Hip Physical Exam Gen-AAO x 3, NAD, Afebrile, Pleasant Head-NCAT, EOMI, PERRLA, Anicteric Sclera, No Posterior Pharyngeal Erythema Neck-Supple, No JVD, No Thyromegaly, No Masses, No LAD, No Bruits Lungs-Clear to Auscultation Bilaterally, No Rales, No Rhonchi, No Wheezing, No Crepitus Chest-No S4, +S1, +S2, No S3, No Murmurs, No Rubs, No Gallops, No Ectopy Abdomen-Soft, Bowel Sounds Present, Non Tender, Non Distended, No Hepatomegaly, No Splenomegaly, No Palpable Masses, No Rebound, No Rigidity, No Guarding Musculoskeletal-Full Range of Motion Bilaterally, No CVAT Extremities-No Cyanosis, No Clubbing, No Edema Nuero-Cranial Nerves II-XII grossly intact, Motor WNL, DTRs WNL, Strength WNL, Non Focal Psych-Normal Mood Admission and Anticipated Discharge Date Admission Date: November 16, 2019 Results & Data Results & Data ([facility]) Vital Signs (Past 12 Hours) Vital Signs Temp Pulse Pulse Resp BP BP Pulse Ox 11/18/19 09:28 37.0 C 105 H 16 118/64 95 11/18/19 08:28 36.9 C 119 H 107/54 L 94 11/18/19 08:26 36.9 C 111 H 16 114/59 L 93 11/18/19 07:58 37.2 C 111 H 16 114/70 92 11/18/19 07:45 37.1 C 116 H 16 99/63 L 93 11/18/19 07:24 36.9 C 91 H 16 99/60 L 11/18/19 07:14 36.9 C 122 H 16 95/55 L 94 11/18/19 02:54 36.7 C 108 H 16 102/65 93 11/17/19 23:10 36.6 C 104 H 16 113/63 93
[2019-11-18] MEDS: CEFAZOLIN 1000MG 1,000 MG/7.5 ML SYR IV SCH (13:50)
[2019-11-18 20:48] LABS: Hematocrit (blood only) 29.1 % (37-47); Hemoglobin 9.4 g/dL (12.0-16.0)
[2019-11-18] MEDS: ACETAMINOPHEN 325 MG TAB PO PRN (21:33)
[2019-11-19] MEDS: MoRPHine SULFATE 2 MG/ML CARP IV PRN ×2 (00:32→12:12)
[2019-11-19] MEDS: SODIUM CHLORIDE 0.9% 1000ML 1,000 ML IV SCH (00:53)
[2019-11-19] MEDS: LEVOTHYROXINE SODIUM 25 MCG TABLET PO SCH (06:15)
--- NOTE | 2019-11-19 07:25 | Orthopedic Progress Note ---
Date of Service November 19, 2019 Assessment & Plan (1) Closed intertrochanteric fracture of right femur: s/p Right hip long cephalomedullary nail POD#2 -ancef x 24, then dc -DVT ppx: SCDs, TEDs, Lovenox daily -Toe touch NWB RLE; continue PT/OT -PT/OT -Morning labs pending. -DC planning - [facility] when stable Admission and Anticipated Discharge Date Admission Date: November 16, 2019 Supervising Physician Co-Signing Physician Notes Patient seen and agree with above assessment and plan Comfortable appearing, no complaints or acute issues overnight Physical exam neurovascular sensory intact right lower extremity grossly, +2 dorsalis pedis pulse, compartment soft nontender, dressing clean dry and intact Subjective POD 2 s/p R TFN Pt awake, alert. Answering questions appropriately. No complaints at present time. Review of Systems 2 Review of Systems: All systems reviewed & are unremarkable except as noted in HPI & below Constitutional: as per Subjective / HPI Physical Exam Physical Exam: Dressings intact. Optifoam dressings added for possible excess drainage. Thigh soft, mildly tender around the operative area. Calves soft, NT. NV intact. Results & Data ([facility]) Vital Signs (Past 12 Hours) Vital Signs Temp Pulse Pulse Resp BP Pulse Ox 11/19/19 07:18 36.9 C 98 H 18 132/57 L 93 11/18/19 23:21 36.8 C 98 H 16 133/73 91
[2019-11-19 07:37] LABS: Hematocrit (blood only) 28.3 % (37-47); Hemoglobin 9.1 g/dL (12.0-16.0); Mean Corpuscular Hgb Conc 32.2 g/dL (32-36); Mean Corpuscular Volume 90.1 fL (80-100); Mean Platelet Volume 12.1 fL (7.4-10.4); Nucleated RBC # (auto) 0.05 K/uL (0-0); Nucleated RBC % (auto) 0.6 %; Platelet Count 108 K/uL (130-400); RDW Coefficient of Variation 15.7 % (11.5-14.5); RDW Standard Deviation 51.7 fL (36.4-46.3); Red Blood Count 3.14 M/uL (4.2-5.4); White Blood Count 8.44 K/uL (4.8-10.8)
[2019-11-19 07:38] LABS: Basophils # (auto) 0.05 K/uL (0-0.2); Basophils % (auto) 0.6 %; Eosinophils # (auto) 0.14 K/uL (0-0.5); Eosinophils % (auto) 1.7 %; Immature Granulocytes # (auto) 0.05 K/uL (0.00-0.02); Immature Granulocytes % (auto) 0.6 %; Lymphocytes # (auto) 1.77 K/uL (1.2-3.4); Monocytes # (auto) 1.34 K/uL (0.11-0.59); Monocytes % (auto) 15.9 %; Neutrophils # (auto) 5.09 K/uL (1.4-6.5); Neutrophils % (auto) 60.2 %; Platelet Estimate Decreased (Normal)
[2019-11-19 07:50] LABS: BUN Creatinine Ratio 28.1 (10-20); Calcium 7.9 mg/dl (8.5-10.1); Creatinine Clr Calc Pharmacy 45.6 ml/min; Est GFR (African American) 90.9; Est GFR (Non-African American) 78.5; Potassium 3.5 mmol/L (3.5-5.1)
[2019-11-19] MEDS: CALCIUM 600MG + VIT D 400 IU TAB PO SCH ×2 (09:05→20:13)
[2019-11-19] MEDS: ENOXAPARIN INJ 30 MG/0.3 ML SYR SQ SCH (09:05)
--- NOTE | 2019-11-19 14:34 | Electrocardiogram Report ---
Test Reason : Blood Pressure : / mmHG Vent. Rate : 111 BPM Atrial Rate : 111 BPM P-R Int : 128 ms QRS Dur : 166 ms QT Int : 320 ms P-R-T Axes : 068 009 061 degrees QTc Int : 435 ms Sinus tachycardia Diffuse Nonspecific ST and T wave abnormality Abnormal ECG When compared with ECG of 16-NOV-2019 23:40, No significant change Confirmed by Sukumar Lucas ([id number]) on 11/19/2019 2:34:38 PM Referred By: [facility] Confirmed By:Sukumar Lucas
[2019-11-19] MEDS ORDERED: SODIUM CHLORIDE 0.9% 1000ML 1,000 ML IV SCH (21:15)
[2019-11-19 21:32] LABS: Hemoglobin 8.7 g/dL (12.0-16.0)
[2019-11-19] MEDS ORDERED: SODIUM CHLORIDE 0.9% 1000ML 500 ML IV SCH (21:58)
--- NOTE | 2019-11-20 00:10 | Hospitalist Progress Note ---
Date of Service November 19, 2019 Assessment & Plan (1) Hip fracture: Closed intertrochanteric fracture of right femur s/p Right hip long cephalomedullary nail (11/16, by Dr. Mann) POD#2 ASSESSMENT AND PLAN: This is an 84-year-old female who presents with fall at home, mechanical fall and found to have right hip fracture at [facility]. 1. Closed intertrochanteric fracture of right femur s/p Right hip long cephalomedullary nail (11/16, by Dr. Mann) -ancef x 24, then dc -DVT ppx: SCDs, TEDs, Lovenox daily -Toe touch NWB RLE; continue PT/OT -PT/OT with appropriate for precautions -Monitor labs Resume Post Op Care per Surgery Protocol Incentive Spirometry 10x per Hour Transition from IV to PO Pain control 2. Post op Blood Loss anemia Hemoglobin 6.2 on December 17 a.m. received 2 units of PRBCs -Currently hemoglobin stable, will continue to monitor closely 3. Hypothyroidism -Continue home Synthroid 4. Osteoporosis - On alendronate weekly. We will also add calcium and vitamin D. 5. History of dizziness - On meclizine p.r.n. DVT Prophylaxis Per Ortho - SCDs, TEDs, Lovenox daily Admission and Anticipated Discharge Date Admission Date: November 16, 2019 Subjective Patient is lying in bed, in no acute distress. POD 2 s/p R TFN Patient required multiple units of packed red blood cells. Received 2 units of blood yesterday. Hemoglobin 6.2 on November 17 a.m Currently patient is awake and alert she is answering questions appropriately, denies any chest pain, shortness of breath, dizziness or lightheadedness. Also denies any abdominal pain nausea or vomiting. Says that her appetite is poor. Review of Systems Review of Systems: All systems reviewed & are unremarkable except as noted in HPI & below Constitutional: no fever and no chills Respiratory: no cough and no dyspnea Cardiovascular: no chest pain and no palpitations Gastrointestinal: no abdominal pain, no nausea and no vomiting Physical Exam Physical Exam: Gen- elderly female sitting up in bed, in no acute distress, AAO x 3 Head- NCAT, EOMI, PERRL, Anicteric Sclera Neck- Supple, No JVD, No Masses Lungs- Clear to Auscultation Bilaterally, No Rales, No Rhonchi, No Wheezing Chest- RRR No Murmurs Abdomen- Soft, Bowel Sounds Present, Non Tender, Non Distended, No Rigidity, No Guarding Musculoskeletal- moves upper extremities without difficulty, able to move her toes b/l, thigh mildly tender to palpation Extremities- No Cyanosis, No Clubbing, No Edema Neuro- patient is alert and oriented answers questions appropriately, speech fluent, no facial symmetry, moves extremities spontaneously, no sensory loss noted Psych- euthymic mood Results & Data Results & Data ([facility]) Vital Signs (Past 12 Hours) Vital Signs Temp Pulse Pulse Resp BP BP Pulse Ox 11/19/19 23:20 36.9 C 104 H 16 105/52 L 92 11/19/19 15:51 36.8 C 112 H 16 137/73 93 Laboratory Results 11/19/19 11/19/19 11/19/19 Range/Units 21:25 06:21 06:21 WBC 8.44 (4.8-10.8) K/uL RBC 3.14 L (4.2-5.4) M/uL Hgb 8.7 L 9.1 L (12.0-16.0) g/dL Hct 26.0 L 28.3 L (37-47) % MCV 90.1 (80-100) fL MCH 29.0 (25-34) pg MCHC 32.2 (32-36) g/dL RDW Std Deviation 51.7 H (36.4-46.3) fL RDW Coeff of Van 15.7 H (11.5-14.5) % Plt Count 108 L (130-400) K/uL MPV 12.1 H (7.4-10.4) fL Immature Gran % (Auto) 0.6 % Neut % (Auto) 60.2 % Lymph % (Auto) 21.0 % [place] % (Auto) 15.9 % Eos % (Auto) 1.7 % Baso % (Auto) 0.6 % Neut # (Auto) 5.09 (1.4-6.5) K/uL Lymph # (Auto) 1.77 (1.2-3.4) K/uL [place] # (Auto) 1.34 H (0.11-0.59) K/uL Eos # (Auto) 0.14 (0-0.5) K/uL Baso # (Auto) 0.05 (0-0.2) K/uL Immature Gran # (Auto) 0.05 H (0.00-0.02) K/uL Absolute Nucleated RBC 0.05 H (0-0) K/uL Nucleated RBC % (auto) 0.6 % Platelet Estimate Decreased L (Normal) Sodium 142 (136-145) mmol/L Potassium 3.5 D (3.5-5.1) mmol/L Chloride 111 H (98-107) mmol/L Carbon Dioxide 27 (21-32) mmol/L Anion Gap 4.0 (3-11) BUN 20 H (7-18) mg/dl Creatinine 0.70 (0.6-1.2) mg/dl Est Cr Clr Drug Dosing 45.6 ml/min Est GFR ( Amer) 90.9 Est GFR (Non-Af Amer) 78.5 BUN/Creatinine Ratio 28.1 H (10-20) Glucose 99 (70-99) mg/dl Calcium 7.9 L (8.5-10.1) mg/dl Crossmatch 11/17/19 Range/Units 09:54 WBC (4.8-10.8) K/uL RBC (4.2-5.4) M/uL Hgb (12.0-16.0) g/dL Hct (37-47) % MCV (80-100) fL MCH (25-34) pg MCHC (32-36) g/dL RDW Std Deviation (36.4-46.3) fL RDW Coeff of Van (11.5-14.5) % Plt Count (130-400) K/uL MPV (7.4-10.4) fL Immature Gran % (Auto) % Neut % (Auto) % Lymph % (Auto) % [place] % (Auto) % Eos % (Auto) % Baso % (Auto) % Neut # (Auto) (1.4-6.5) K/uL Lymph # (Auto) (1.2-3.4) K/uL [place] # (Auto) (0.11-0.59) K/uL Eos # (Auto) (0-0.5) K/uL Baso # (Auto) (0-0.2) K/uL Immature Gran # (Auto) (0.00-0.02) K/uL Absolute Nucleated RBC (0-0) K/uL Nucleated RBC % (auto) % Platelet Estimate (Normal) Sodium (136-145) mmol/L Potassium (3.5-5.1) mmol/L Chloride (98-107) mmol/L Carbon Dioxide (21-32) mmol/L Anion Gap (3-11) BUN (7-18) mg/dl Creatinine (0.6-1.2) mg/dl Est Cr Clr Drug Dosing ml/min Est GFR ( Amer) Est GFR (Non-Af Amer) BUN/Creatinine Ratio (10-20) Glucose (70-99) mg/dl Calcium (8.5-10.1) mg/dl Crossmatch See Detail Medications Administered Current Inpatient Medications Acetaminophen (Tylenol) 650 mg PO Q4H PRN PRN Reason: pain/fever Stop: 12/16/19 22:55 Last Admin: 11/18/19 21:33 Dose: 650 mg Documented by: Alendronate Sodium (Fosamax) 70 mg PO Tu@0630 [facility] Stop: 12/18/19 06:29 Last Admin: 11/18/19 06:17 Dose: 70 mg Documented by: Enoxaparin Sodium (Lovenox) 30 mg SQ QAM [facility] Stop: 12/18/19 08:59 Last Admin: 11/19/19 09:05 Dose: 30 mg Documented by: Sodium Chloride (Nss 1000ml) 500 mls @ 80 mls/hr IV .Q6H15M [facility] Stop: 11/20/19 04:12 Last Admin: 11/19/19 22:25 Dose: 80 mls/hr Documented by: Levothyroxine Sodium (Synthroid) 25 mcg PO DAILYBB [facility] Stop: 12/17/19 06:29 Last Admin: 11/19/19 06:15 Dose: 25 mcg Documented by: Meclizine HCl (Antivert) 25 mg PO TID PRN PRN Reason: Dizziness or Vertigo Stop: 12/16/19 23:00 Morphine Sulfate (Morphine Sulfate) 2 mg IV Q4H PRN PRN Reason: Pain Stop: 11/30/19 22:55 Last Admin: 11/19/19 12:12 Dose: 2 mg Documented by: Multivitamins/Minerals (Caltrate Plus) 1 tab PO BID [facility] Stop: 12/17/19 08:59 Last Admin: 11/19/19 20:13 Dose: 1 tab Documented by: Naloxone HCl (Narcan) 0.1 mg IV UD PRN PRN Reason: Opioid Overdose Stop: 12/17/19 18:19 Polyethylene Glycol (Miralax Powder Packet) 17 gm PO DAILY PRN PRN Reason: Constipation Stop: 12/16/19 22:55
[2019-11-20] MEDS: LEVOTHYROXINE SODIUM 25 MCG TABLET PO SCH (05:37)
[2019-11-20] MEDS: ACETAMINOPHEN 325 MG TAB PO PRN ×2 (05:39→18:30)
[2019-11-20 06:16] LABS: Basophils # (auto) 0.03 K/uL (0-0.2); Basophils % (auto) 0.4 %; Eosinophils # (auto) 0.32 K/uL (0-0.5); Eosinophils % (auto) 4.3 %; Hemoglobin 7.9 g/dL (12.0-16.0); Immature Granulocytes # (auto) 0.06 K/uL (0.00-0.02); Immature Granulocytes % (auto) 0.8 %; Lymphocytes # (auto) 1.67 K/uL (1.2-3.4); Lymphocytes % (auto) 22.4 %; Mean Corpuscular Hemoglobin 29.4 pg (25-34); Mean Corpuscular Hgb Conc 32.9 g/dL (32-36); Mean Corpuscular Volume 89.2 fL (80-100); Mean Platelet Volume 11.7 fL (7.4-10.4); Monocytes # (auto) 1.09 K/uL (0.11-0.59); Monocytes % (auto) 14.6 %; Neutrophils # (auto) 4.29 K/uL (1.4-6.5); Neutrophils % (auto) 57.5 %; Nucleated RBC # (auto) 0.06 K/uL (0-0); Nucleated RBC % (auto) 0.8 %; Platelet Count 121 K/uL (130-400); RDW Coefficient of Variation 15.5 % (11.5-14.5); RDW Standard Deviation 50.1 fL (36.4-46.3); Red Blood Count 2.69 M/uL (4.2-5.4); White Blood Count 7.46 K/uL (4.8-10.8)
[2019-11-20 06:41] LABS: Anisocytosis Present; Giant Platelets 1+; Polychromasia 1+
[2019-11-20 06:50] LABS: BUN Creatinine Ratio 28.8 (10-20); Calcium 7.9 mg/dl (8.5-10.1); Est GFR (African American) 97.9; Est GFR (Non-African American) 84.4; Potassium 3.5 mmol/L (3.5-5.1)
[2019-11-20] MEDS ORDERED: SODIUM CHLORIDE 0.9% 250 ML IV PRN (07:55)
[2019-11-20] MEDS ORDERED: POTASSIUM CHLORIDE 20 MEQ TABCR PO STA (08:35)
--- NOTE | 2019-11-20 08:35 | Hospitalist Progress Note ---
Date of Service November 20, 2019 Assessment & Plan (1) Hip fracture: Closed intertrochanteric fracture of right femur s/p Right hip long cephalomedullary nail (11/16, by Dr. Mann) POD#3 ASSESSMENT AND PLAN: This is an 84-year-old female who presents with fall at home, mechanical fall and found to have right hip fracture at [facility]. 1. Closed intertrochanteric fracture of right femur s/p Right hip long cephalomedullary nail (11/16, by Dr. Mann) -ancef x 24, then dc -DVT ppx: SCDs, TEDs, Lovenox daily -Toe touch NWB RLE; continue PT/OT -PT/OT with appropriate for precautions -Monitor labs Resume Post Op Care per Surgery Protocol Incentive Spirometry 10x per Hour Transition from IV to PO Pain control 2. Post op Blood Loss anemia Hemoglobin 6.2 on December 17 a.m. received 2 units of PRBCs Hemoglobin below 8 this morning (11/20/19), transfused 1 unit of PRBCs, H&H checked afterward, hemoglobin over 10 3. Hypothyroidism -Continue home Synthroid 4. Osteoporosis - On alendronate weekly. We will also add calcium and vitamin D. 5. History of dizziness - On meclizine p.r.n. DVT Prophylaxis Per Ortho - SCDs, TEDs, Lovenox daily, may consider to switch to aspirin 81 mg twice a day Admission and Anticipated Discharge Date Admission Date: November 16, 2019 Subjective POD 3 s/p R TFN Hemoglobin 6.2 on November 17 a.m Hemoglobin 9.1 yesterday morning, today morning 7.9, will transfuse 1 unit of PRBCs Patient is currently sitting in a chair, in no acute distress, received 1 unit of PRBCs earlier today. Denies any fevers, chills, chest pain, shortness of breath, palpitations, nausea or vomiting. She says that she actually has been feeling fairly well except for some right hip pain with movement. Review of Systems Review of Systems: All systems reviewed & are unremarkable except as noted in HPI & below Constitutional: no fever and no chills Respiratory: no cough and no dyspnea Cardiovascular: no chest pain and no palpitations Gastrointestinal: no abdominal pain, no nausea and no vomiting Physical Exam Physical Exam: Gen- elderly female sitting up in chair, in no acute distress, AAO x 3 Head- NCAT, EOMI, PERRL, Anicteric Sclera Neck- Supple, No JVD, No Masses Lungs- Clear to Auscultation Bilaterally, No Rales, No Rhonchi, No Wheezing Chest- RRR No Murmurs Abdomen- Soft, Bowel Sounds Present, Non Tender, Non Distended, No Rigidity, No Guarding Musculoskeletal- moves upper extremities without difficulty, able to move her toes b/l, thigh mildly tender to palpation Extremities- No Cyanosis, No Clubbing, No Edema, there is some oozing noted from her incision site on her right thigh Neuro- patient is alert and oriented answers questions appropriately, speech fluent, no facial symmetry, moves extremities spontaneously, no sensory loss noted Psych- euthymic mood Results & Data Results & Data ([facility]) Vital Signs (Past 12 Hours) Vital Signs Temp Pulse Resp BP BP Pulse Ox 11/20/19 07:28 36.7 C 102 H 14 119/61 92 11/19/19 23:20 36.9 C 104 H 16 105/52 L 92 Laboratory Results 11/20/19 11/20/19 11/20/19 Range/Units 08:03 05:25 05:25 WBC 7.46 (4.8-10.8) K/uL RBC 2.69 L (4.2-5.4) M/uL Hgb 7.9 L (12.0-16.0) g/dL Hct 24.0 L (37-47) % MCV 89.2 (80-100) fL MCH 29.4 (25-34) pg MCHC 32.9 (32-36) g/dL RDW Std Deviation 50.1 H (36.4-46.3) fL RDW Coeff of Van 15.5 H (11.5-14.5) % Plt Count 121 L (130-400) K/uL MPV 11.7 H (7.4-10.4) fL Immature Gran % (Auto) 0.8 % Neut % (Auto) 57.5 % Lymph % (Auto) 22.4 % [place] % (Auto) 14.6 % Eos % (Auto) 4.3 % Baso % (Auto) 0.4 % Neut # (Auto) 4.29 (1.4-6.5) K/uL Lymph # (Auto) 1.67 (1.2-3.4) K/uL [place] # (Auto) 1.09 H (0.11-0.59) K/uL Eos # (Auto) 0.32 (0-0.5) K/uL Baso # (Auto) 0.03 (0-0.2) K/uL Immature Gran # (Auto) 0.06 H (0.00-0.02) K/uL Absolute Nucleated RBC 0.06 H (0-0) K/uL Nucleated RBC % (auto) 0.8 % Giant Platelets 1+ Polychromasia 1+ Anisocytosis Present Sodium 142 (136-145) mmol/L Potassium 3.5 (3.5-5.1) mmol/L Chloride 111 H (98-107) mmol/L Carbon Dioxide 29 (21-32) mmol/L Anion Gap 2.0 L (3-11) BUN 16 (7-18) mg/dl Creatinine 0.56 L (0.6-1.2) mg/dl Est Cr Clr Drug Dosing 57.0 ml/min Est GFR ( Amer) 97.9 Est GFR (Non-Af Amer) 84.4 BUN/Creatinine Ratio 28.8 H (10-20) Glucose 98 (70-99) mg/dl Calcium 7.9 L (8.5-10.1) mg/dl Blood Type Pending Antibody Screen Pending Crossmatch See Detail 11/19/19 Range/Units 21:25 WBC (4.8-10.8) K/uL RBC (4.2-5.4) M/uL Hgb 8.7 L (12.0-16.0) g/dL Hct 26.0 L (37-47) % MCV (80-100) fL MCH (25-34) pg MCHC (32-36) g/dL RDW Std Deviation (36.4-46.3) fL RDW Coeff of Van (11.5-14.5) % Plt Count (130-400) K/uL MPV (7.4-10.4) fL Immature Gran % (Auto) % Neut % (Auto) % Lymph % (Auto) % [place] % (Auto) % Eos % (Auto) % Baso % (Auto) % Neut # (Auto) (1.4-6.5) K/uL Lymph # (Auto) (1.2-3.4) K/uL [place] # (Auto) (0.11-0.59) K/uL Eos # (Auto) (0-0.5) K/uL Baso # (Auto) (0-0.2) K/uL Immature Gran # (Auto) (0.00-0.02) K/uL Absolute Nucleated RBC (0-0) K/uL Nucleated RBC % (auto) % Giant Platelets Polychromasia Anisocytosis Sodium (136-145) mmol/L Potassium (3.5-5.1) mmol/L Chloride (98-107) mmol/L Carbon Dioxide (21-32) mmol/L Anion Gap (3-11) BUN (7-18) mg/dl Creatinine (0.6-1.2) mg/dl Est Cr Clr Drug Dosing ml/min Est GFR ( Amer) Est GFR (Non-Af Amer) BUN/Creatinine Ratio (10-20) Glucose (70-99) mg/dl Calcium (8.5-10.1) mg/dl Blood Type Antibody Screen Crossmatch
[2019-11-20] MEDS: ENOXAPARIN INJ 30 MG/0.3 ML SYR SQ SCH (09:29)
[2019-11-20] MEDS: CALCIUM 600MG + VIT D 400 IU TAB PO SCH ×2 (09:30→20:35)
--- NOTE | 2019-11-20 10:34 | Orthopedic Progress Note ---
Date of Service November 20, 2019 Assessment & Plan (1) Closed intertrochanteric fracture of right femur: s/p Right hip long cephalomedullary nail POD#3 -DVT ppx: SCDs, TEDs, Lovenox daily -Toe touch NWB RLE; continue PT/OT -PT/OT -Hemoglobin down to 7.9 from 9 yesterday. Receiving 1 unit of PRBCs at this time. -Drainage not unusual for the surgery considering the swelling she has in her thigh. Consider holding Lovenox for 24 hours or changing to aspirin twice daily if swelling/drainage continue. -DC planning - [facility] when stable Admission and Anticipated Discharge Date Admission Date: November 16, 2019 Supervising Physician Co-Signing Physician Notes Patient seen and examined this a.m., agree with above assessment and plan. No acute issues overnight, patient is eager to be discharged from hospital. RLE NVSI +EHL/FHL/TA/GS SILT grossly, +2 DP pulse, compartments soft NT, dressing cdi. Subjective Postop day 3 status post right TFN. Patient currently sitting up in her chair at the bedside. She is awake and alert. He has no overt complaints noted. He states that her hip does have some soreness at times but currently her pain is controlled. She is currently receiving 1 unit of PRBCs. Review of Systems Review of Systems: All systems reviewed & are unremarkable except as noted in HPI & below Constitutional: as per Subjective / HPI Physical Exam Physical Exam: Thigh is swollen but soft. Drainage noted from the central incision site. Mild drainage noted from the distal and proximal sites. No overt erythema. Calves are soft nontender. Neurovascular is intact. Toes are mobile. Results & Data ([facility]) Vital Signs (Past 12 Hours) Vital Signs Temp Pulse Pulse Resp BP BP BP 11/20/19 10:00 36.7 C 102 H 15 117/62 11/20/19 09:42 36.7 C 111 H 16 110/58 L 11/20/19 09:25 36.7 C 111 H 16 109/63 11/20/19 07:28 36.7 C 102 H 14 119/61 11/19/19 23:20 36.9 C 104 H 16 105/52 L Pulse Ox 11/20/19 10:00 95 11/20/19 09:42 94 11/20/19 09:25 94 11/20/19 07:28 92 11/19/19 23:20 92 Laboratory Results Laboratory Results WBC 7.46 K/uL (4.8-10.8) 11/20/19 05:25 RBC 2.69 M/uL (4.2-5.4) L 11/20/19 05:25 Hgb 7.9 g/dL (12.0-16.0) L 11/20/19 05:25 Hct 24.0 % (37-47) L 11/20/19 05:25 MCV 89.2 fL (80-100) 11/20/19 05:25 MCH 29.4 pg (25-34) 11/20/19 05:25 MCHC 32.9 g/dL (32-36) 11/20/19 05:25 RDW Std Deviation 50.1 fL (36.4-46.3) H 11/20/19 05:25 RDW Coeff of Van 15.5 % (11.5-14.5) H 11/20/19 05:25 Plt Count 121 K/uL (130-400) L 11/20/19 05:25 MPV 11.7 fL (7.4-10.4) H 11/20/19 05:25 Immature Gran % (Auto) 0.8 % 11/20/19 05:25 Neut % (Auto) 57.5 % 11/20/19 05:25 Lymph % (Auto) 22.4 % 11/20/19 05:25 [place] % (Auto) 14.6 % 11/20/19 05:25 Eos % (Auto) 4.3 % 11/20/19 05:25 Baso % (Auto) 0.4 % 11/20/19 05:25 Neut # (Auto) 4.29 K/uL (1.4-6.5) 11/20/19 05:25 Lymph # (Auto) 1.67 K/uL (1.2-3.4) 11/20/19 05:25 [place] # (Auto) 1.09 K/uL (0.11-0.59) H 11/20/19 05:25 Eos # (Auto) 0.32 K/uL (0-0.5) 11/20/19 05:25 Baso # (Auto) 0.03 K/uL (0-0.2) 11/20/19 05:25 Immature Gran # (Auto) 0.06 K/uL (0.00-0.02) H 11/20/19 05:25 Absolute Nucleated RBC 0.06 K/uL (0-0) H 11/20/19 05:25 Nucleated RBC % (auto) 0.8 % 11/20/19 05:25 Platelet Estimate Decreased (Normal) L 11/19/19 06:21 Giant Platelets 1+ 11/20/19 05:25 Polychromasia 1+ 11/20/19 05:25 Anisocytosis Present 11/20/19 05:25 PT 11.4 Seconds (9.0-12.0) 11/16/19 23:07 INR 1.1 (0.9-1.1) 11/16/19 23:07 APTT 22.4 Seconds (21.0-31.0) 11/16/19 23:07 PTT Ratio 0.8 11/16/19 23:07 Sodium 142 mmol/L (136-145) 11/20/19 05:25 Potassium 3.5 mmol/L (3.5-5.1) 11/20/19 05:25 Chloride 111 mmol/L (98-107) H 11/20/19 05:25 Carbon Dioxide 29 mmol/L (21-32) 11/20/19 05:25 Anion Gap 2.0 (3-11) L 11/20/19 05:25 BUN 16 mg/dl (7-18) 11/20/19 05:25 Creatinine 0.56 mg/dl (0.6-1.2) L 11/20/19 05:25 Est Cr Clr Drug Dosing 57.0 ml/min 11/20/19 05:25 Est GFR ( Amer) 97.9 11/20/19 05:25 Est GFR (Non-Af Amer) 84.4 11/20/19 05:25 BUN/Creatinine Ratio 28.8 (10-20) H 11/20/19 05:25 Glucose 98 mg/dl (70-99) 11/20/19 05:25 Estimat Average Glucose 114 mg/dl 11/18/19 05:55 Hemoglobin A1c 5.6 % (4.5-5.6) 11/18/19 05:55 Calcium 7.9 mg/dl (8.5-10.1) L 11/20/19 05:25 Magnesium 2.3 mg/dl (1.8-2.4) 11/18/19 05:55 Total Bilirubin 0.6 mg/dl (0.2-1) 11/16/19 23:07 AST 18 U/L (15-37) 11/16/19 23:07 ALT 18 U/L (12-78) 11/16/19 23:07 Alkaline Phosphatase 51 U/L (45-117) 11/16/19 23:07 Total Protein 6.7 gm/dl (6.4-8.2) 11/16/19 23:07 Albumin 3.2 gm/dl (3.4-5.0) L 11/16/19 23:07 Globulin 3.5 gm/dl (2.5-4.0) 11/16/19 23:07 Albumin/Globulin Ratio 0.9 (0.9-2) 11/16/19 23:07 TSH 1.360 uIu/ml (0.300-4.500) 11/16/19 23:07 SARS-CoV-2 RNA (RT-PCR) NEGATIVE (Negative) 11/18/19 23:05 Blood Type A Positive 11/20/19 08:03 Blood Type Recheck A Positive 11/16/19 23:07 Antibody Screen NEGATIVE 11/20/19 08:03 Crossmatch See Detail 11/20/19 08:03
[2019-11-20 14:42] LABS: Hematocrit (blood only) 32.3 % (37-47); Hemoglobin 10.3 g/dL (12.0-16.0)
[2019-11-20] MEDS ORDERED: POLYETHYLENE (MIRALAX) 17 GM PACK PO ONE (17:00)
[2019-11-20 22:43] LABS: Hemoglobin 9.3 g/dL (12.0-16.0)
[2019-11-21] MEDS: LEVOTHYROXINE SODIUM 25 MCG TABLET PO SCH (05:14)
[2019-11-21 06:07] LABS: Basophils # (auto) 0.02 K/uL (0-0.2); Basophils % (auto) 0.3 %; Eosinophils # (auto) 0.45 K/uL (0-0.5); Eosinophils % (auto) 7.7 %; Hematocrit (blood only) 31.3 % (37-47); Immature Granulocytes # (auto) 0.04 K/uL (0.00-0.02); Immature Granulocytes % (auto) 0.7 %; Lymphocytes # (auto) 1.15 K/uL (1.2-3.4); Lymphocytes % (auto) 19.8 %; Mean Corpuscular Hemoglobin 28.3 pg (25-34); Mean Corpuscular Hgb Conc 31.9 g/dL (32-36); Mean Corpuscular Volume 88.7 fL (80-100); Mean Platelet Volume 11.5 fL (7.4-10.4); Monocytes # (auto) 0.81 K/uL (0.11-0.59); Monocytes % (auto) 13.9 %; Neutrophils # (auto) 3.35 K/uL (1.4-6.5); Neutrophils % (auto) 57.6 %; Platelet Count 137 K/uL (130-400); RDW Coefficient of Variation 15.9 % (11.5-14.5); RDW Standard Deviation 50.4 fL (36.4-46.3); Red Blood Count 3.53 M/uL (4.2-5.4); White Blood Count 5.82 K/uL (4.8-10.8)
[2019-11-21 06:37] LABS: BUN Creatinine Ratio 24.2 (10-20); Calcium 8.2 mg/dl (8.5-10.1); Est GFR (African American) 97.9; Est GFR (Non-African American) 84.4
[2019-11-21] MEDS: CALCIUM 600MG + VIT D 400 IU TAB PO SCH ×2 (08:11→20:55)
[2019-11-21] MEDS: ENOXAPARIN INJ 30 MG/0.3 ML SYR SQ SCH (08:11)
[2019-11-21] MEDS: POLYETHYLENE (MIRALAX) 17 GM PACK PO SCH (08:24)
--- NOTE | 2019-11-21 08:56 | Hospitalist Progress Note ---
Date of Service November 21, 2019 Assessment & Plan (1) Hip fracture: Closed intertrochanteric fracture of right femur s/p Right hip long cephalomedullary nail (11/16, by Dr. Mann) POD#4 ASSESSMENT AND PLAN: This is an 84-year-old female who presents with fall at home, mechanical fall and found to have right hip fracture at [facility]. 1. Closed intertrochanteric fracture of right femur s/p Right hip long cephalomedullary nail (11/16, by Dr. Mann) -ancef x 24, then dc -DVT ppx: SCDs, TEDs, Lovenox daily -Toe touch NWB RLE; continue PT/OT -PT/OT with appropriate for precautions -Monitor labs Resume Post Op Care per Surgery Protocol Incentive Spirometry 10x per Hour Transition from IV to PO Pain control 2. Post op Blood Loss anemia Hemoglobin 6.2 on December 17 a.m. received 2 units of PRBCs Hemoglobin below 8 (11/20/19), transfused 1 unit of PRBCs, H&H checked afterward, hemoglobin over 10 Hgb stable at 10 (11/21/19) 3. Hypothyroidism -Continue home Synthroid 4. Osteoporosis - On alendronate weekly. We will also add calcium and vitamin D. 5. History of dizziness - On meclizine p.r.n. DVT Prophylaxis Per Ortho - SCDs, TEDs, Lovenox daily, may consider to switch to aspirin 81 mg twice a day Disposition: rehab, aware Admission and Anticipated Discharge Date Admission Date: November 16, 2019 Subjective POD 4 s/p R TFN Hemoglobin 6.2 on November 17 a.m Yesterday morning Hgb 7.9, transfused 1 unit of PRBCs, then repeat hemoglobin 10.3. This a.m. hemoglobin stable at 10 Pt is sitting up in bed, in NAD. Denies any fever, chills, chest pain, shortness of breath. Says she feels dizzy sometimes when she gets up. No abd. pain, n/v. Awaiting placement. Review of Systems Review of Systems: All systems reviewed & are unremarkable except as noted in HPI & below Constitutional: no fever and no chills Respiratory: no cough and no dyspnea Cardiovascular: no chest pain and no palpitations Gastrointestinal: no abdominal pain, no nausea and no vomiting Physical Exam Physical Exam: Gen- elderly female sitting up in chair, in no acute distress, AAO x 3 Head- NCAT, EOMI, PERRL, Anicteric Sclera Neck- Supple, No JVD, No Masses Lungs- Clear to Auscultation Bilaterally, No Rales, No Rhonchi, No Wheezing Chest- RRR No Murmurs Abdomen- Soft, Bowel Sounds Present, Non Tender, Non Distended, No Rigidity, No Guarding Musculoskeletal- moves upper extremities without difficulty, able to move her toes b/l, thigh mildly tender to palpation Extremities- No Cyanosis, No Clubbing, No Edema, there is some oozing noted from her incision site on her right thigh Neuro- patient is alert and oriented answers questions appropriately, speech fluent, no facial symmetry, moves extremities spontaneously, no sensory loss noted Psych- euthymic mood Results & Data Results & Data ([facility]) Vital Signs (Past 12 Hours) Vital Signs Temp Pulse Resp BP Pulse Ox 11/21/19 07:17 36.7 C 104 H 14 152/77 H 94 11/20/19 23:34 36.9 C 101 H 16 126/71 93 Laboratory Results 11/21/19 11/21/19 11/20/19 Range/Units 05:42 05:42 22:24 WBC 5.82 (4.8-10.8) K/uL RBC 3.53 L (4.2-5.4) M/uL Hgb 10.0 L 9.3 L (12.0-16.0) g/dL Hct 31.3 L 29.0 L (37-47) % MCV 88.7 (80-100) fL MCH 28.3 (25-34) pg MCHC 31.9 L (32-36) g/dL RDW Std Deviation 50.4 H (36.4-46.3) fL RDW Coeff of Van 15.9 H (11.5-14.5) % Plt Count 137 (130-400) K/uL MPV 11.5 H (7.4-10.4) fL Immature Gran % (Auto) 0.7 % Neut % (Auto) 57.6 % Lymph % (Auto) 19.8 % [place] % (Auto) 13.9 % Eos % (Auto) 7.7 % Baso % (Auto) 0.3 % Neut # (Auto) 3.35 (1.4-6.5) K/uL Lymph # (Auto) 1.15 L (1.2-3.4) K/uL [place] # (Auto) 0.81 H (0.11-0.59) K/uL Eos # (Auto) 0.45 (0-0.5) K/uL Baso # (Auto) 0.02 (0-0.2) K/uL Immature Gran # (Auto) 0.04 H (0.00-0.02) K/uL Sodium 143 (136-145) mmol/L Potassium 4.0 (3.5-5.1) mmol/L Chloride 110 H (98-107) mmol/L Carbon Dioxide 29 (21-32) mmol/L Anion Gap 4.0 (3-11) BUN 14 (7-18) mg/dl Creatinine 0.56 L (0.6-1.2) mg/dl Est Cr Clr Drug Dosing 57.0 ml/min Est GFR ( Amer) 97.9 Est GFR (Non-Af Amer) 84.4 BUN/Creatinine Ratio 24.2 H (10-20) Glucose 94 (70-99) mg/dl Calcium 8.2 L (8.5-10.1) mg/dl SARS-CoV-2 RNA (RT-PCR) (Negative) Blood Type Antibody Screen Crossmatch 11/20/19 11/20/19 11/18/19 Range/Units 14:25 08:03 23:05 WBC (4.8-10.8) K/uL RBC (4.2-5.4) M/uL Hgb 10.3 L (12.0-16.0) g/dL Hct 32.3 L (37-47) % MCV (80-100) fL MCH (25-34) pg MCHC (32-36) g/dL RDW Std Deviation (36.4-46.3) fL RDW Coeff of Van (11.5-14.5) % Plt Count (130-400) K/uL MPV (7.4-10.4) fL Immature Gran % (Auto) % Neut % (Auto) % Lymph % (Auto) % [place] % (Auto) % Eos % (Auto) % Baso % (Auto) % Neut # (Auto) (1.4-6.5) K/uL Lymph # (Auto) (1.2-3.4) K/uL [place] # (Auto) (0.11-0.59) K/uL Eos # (Auto) (0-0.5) K/uL Baso # (Auto) (0-0.2) K/uL Immature Gran # (Auto) (0.00-0.02) K/uL Sodium (136-145) mmol/L Potassium (3.5-5.1) mmol/L Chloride (98-107) mmol/L Carbon Dioxide (21-32) mmol/L Anion Gap (3-11) BUN (7-18) mg/dl Creatinine (0.6-1.2) mg/dl Est Cr Clr Drug Dosing ml/min Est GFR ( Amer) Est GFR (Non-Af Amer) BUN/Creatinine Ratio (10-20) Glucose (70-99) mg/dl Calcium (8.5-10.1) mg/dl SARS-CoV-2 RNA (RT-PCR) NEGATIVE (Negative) Blood Type A Positive Antibody Screen NEGATIVE Crossmatch See Detail 11/17/19 Range/Units 09:54 WBC (4.8-10.8) K/uL RBC (4.2-5.4) M/uL Hgb (12.0-16.0) g/dL Hct (37-47) % MCV (80-100) fL MCH (25-34) pg MCHC (32-36) g/dL RDW Std Deviation (36.4-46.3) fL RDW Coeff of Van (11.5-14.5) % Plt Count (130-400) K/uL MPV (7.4-10.4) fL Immature Gran % (Auto) % Neut % (Auto) % Lymph % (Auto) % [place] % (Auto) % Eos % (Auto) % Baso % (Auto) % Neut # (Auto) (1.4-6.5) K/uL Lymph # (Auto) (1.2-3.4) K/uL [place] # (Auto) (0.11-0.59) K/uL Eos # (Auto) (0-0.5) K/uL Baso # (Auto) (0-0.2) K/uL Immature Gran # (Auto) (0.00-0.02) K/uL Sodium (136-145) mmol/L Potassium (3.5-5.1) mmol/L Chloride (98-107) mmol/L Carbon Dioxide (21-32) mmol/L Anion Gap (3-11) BUN (7-18) mg/dl Creatinine (0.6-1.2) mg/dl Est Cr Clr Drug Dosing ml/min Est GFR ( Amer) Est GFR (Non-Af Amer) BUN/Creatinine Ratio (10-20) Glucose (70-99) mg/dl Calcium (8.5-10.1) mg/dl SARS-CoV-2 RNA (RT-PCR) (Negative) Blood Type Antibody Screen Crossmatch See Detail Medications Administered Current Inpatient Medications Acetaminophen (Tylenol) 650 mg PO Q4H PRN PRN Reason: pain/fever Stop: 12/16/19 22:55 Last Admin: 11/20/19 18:30 Dose: 650 mg Documented by: Alendronate Sodium (Fosamax) 70 mg PO Tu@0630 [facility] Stop: 12/18/19 06:29 Last Admin: 11/18/19 06:17 Dose: 70 mg Documented by: Enoxaparin Sodium (Lovenox) 30 mg SQ QAM [facility] Stop: 12/18/19 08:59 Last Admin: 11/21/19 08:11 Dose: 30 mg Documented by: Levothyroxine Sodium (Synthroid) 25 mcg PO DAILYBB [facility] Stop: 12/17/19 06:29 Last Admin: 11/21/19 05:14 Dose: 25 mcg Documented by: Meclizine HCl (Antivert) 25 mg PO TID PRN PRN Reason: Dizziness or Vertigo Stop: 12/16/19 23:00 Morphine Sulfate (Morphine Sulfate) 2 mg IV Q4H PRN PRN Reason: Pain Stop: 11/30/19 22:55 Last Admin: 11/19/19 12:12 Dose: 2 mg Documented by: Multivitamins/Minerals (Caltrate Plus) 1 tab PO BID [facility] Stop: 12/17/19 08:59 Last Admin: 11/21/19 08:11 Dose: 1 tab Documented by: Naloxone HCl (Narcan) 0.1 mg IV UD PRN PRN Reason: Opioid Overdose Stop: 12/17/19 18:19 Polyethylene Glycol (Miralax Powder Packet) 17 gm PO DAILY [facility] Stop: 12/21/19 08:59 Last Admin: 11/21/19 08:24 Dose: 17 gm Documented by:
[2019-11-21] MEDS: MoRPHine SULFATE 2 MG/ML CARP IV PRN (17:24)
[2019-11-22] MEDS: LEVOTHYROXINE SODIUM 25 MCG TABLET PO SCH (05:54)
[2019-11-22 06:37] LABS: Basophils # (auto) 0.01 K/uL (0-0.2); Basophils % (auto) 0.2 %; Eosinophils # (auto) 0.46 K/uL (0-0.5); Eosinophils % (auto) 7.3 %; Hematocrit (blood only) 32.4 % (37-47); Hemoglobin 10.2 g/dL (12.0-16.0); Immature Granulocytes # (auto) 0.08 K/uL (0.00-0.02); Immature Granulocytes % (auto) 1.3 %; Lymphocytes # (auto) 1.25 K/uL (1.2-3.4); Lymphocytes % (auto) 19.7 %; Mean Corpuscular Hemoglobin 28.7 pg (25-34); Mean Corpuscular Hgb Conc 31.5 g/dL (32-36); Mean Corpuscular Volume 91.3 fL (80-100); Mean Platelet Volume 11.3 fL (7.4-10.4); Monocytes # (auto) 0.95 K/uL (0.11-0.59); Neutrophils # (auto) 3.58 K/uL (1.4-6.5); Neutrophils % (auto) 56.5 %; Platelet Count 172 K/uL (130-400); RDW Coefficient of Variation 15.8 % (11.5-14.5); RDW Standard Deviation 51.2 fL (36.4-46.3); Red Blood Count 3.55 M/uL (4.2-5.4); White Blood Count 6.33 K/uL (4.8-10.8)
[2019-11-22 07:00] LABS: BUN Creatinine Ratio 24.7 (10-20); Calcium 8.2 mg/dl (8.5-10.1); Creatinine Clr Calc Pharmacy 50.7 ml/min; Est GFR (African American) 94.1; Est GFR (Non-African American) 81.2
[2019-11-22] MEDS: ENOXAPARIN INJ 30 MG/0.3 ML SYR SQ SCH (09:23)
[2019-11-22] MEDS: CALCIUM 600MG + VIT D 400 IU TAB PO SCH ×2 (09:24→20:48)
[2019-11-22] MEDS: POLYETHYLENE (MIRALAX) 17 GM PACK PO SCH (09:24)
[2019-11-22] MEDS: MoRPHine SULFATE 2 MG/ML CARP IV PRN ×2 (09:32→13:37)
--- NOTE | 2019-11-22 09:39 | Hospitalist Progress Note ---
Date of Service November 22, 2019 Assessment & Plan (1) Hip fracture: Closed intertrochanteric fracture of right femur s/p Right hip long cephalomedullary nail (11/16, by Dr. Mann) POD#5 ASSESSMENT AND PLAN: This is an 84-year-old female who presents with fall at home, mechanical fall and found to have right hip fracture at [facility]. 1. Closed intertrochanteric fracture of right femur s/p Right hip long cephalomedullary nail (11/16, by Dr. Mann) -ancef x 24, then dc -DVT ppx: SCDs, TEDs, Lovenox daily -Toe touch NWB RLE; continue PT/OT -PT/OT with appropriate for precautions -Monitor labs Resume Post Op Care per Surgery Protocol Incentive Spirometry 10x per Hour Transition from IV to PO Pain control 2. Post op Blood Loss anemia Hemoglobin 6.2 on December 17 a.m. received 2 units of PRBCs Hemoglobin below 8 (11/20/19), transfused 1 unit of PRBCs, H&H checked afterward, hemoglobin over 10 Hgb stable at 10 (11/22/19) 3. Hypothyroidism -Continue home Synthroid 4. Osteoporosis - On alendronate weekly. We will also add calcium and vitamin D. 5. History of dizziness - On meclizine p.r.n. DVT Prophylaxis Per Ortho - SCDs, TEDs, Lovenox daily, may consider to switch to aspirin 81 mg twice a day Disposition: rehab, aware Admission and Anticipated Discharge Date Admission Date: November 16, 2019 Subjective POD 5 s/p R TFN Hemoglobin 6.2 on November 17 a.m, required blood transfusion. This a.m. hemoglobin stable at 10 Pt is laying in bed, in NAD. Denies any fever, chills, chest pain, shortness of breath. No abd. pain, n/v. Awaiting placement. Review of Systems Review of Systems: All systems reviewed & are unremarkable except as noted in HPI & below Constitutional: no fever and no chills Respiratory: no cough and no dyspnea Cardiovascular: no chest pain and no palpitations Gastrointestinal: no abdominal pain, no nausea and no vomiting Physical Exam Physical Exam: Gen- elderly female sitting up in chair, in no acute distress, AAO x 3 Head- NCAT, EOMI, PERRL, Anicteric Sclera Neck- Supple, No JVD, No Masses Lungs- Clear to Auscultation Bilaterally, No Rales, No Rhonchi, No Wheezing Chest- RRR No Murmurs Abdomen- Soft, Bowel Sounds Present, Non Tender, Non Distended, No Rigidity, No Guarding Musculoskeletal- moves upper extremities without difficulty, able to move her toes b/l, thigh mildly tender to palpation Extremities- No Cyanosis, No Clubbing, No Edema, there is some oozing noted from her incision site on her right thigh, right thigh edema improved, ecchymosis noted Neuro- patient is alert and oriented answers questions appropriately, speech fluent, no facial asymmetry, moves extremities spontaneously, no sensory loss noted Psych- euthymic mood Results & Data Results & Data ([facility]) Vital Signs (Past 12 Hours) Vital Signs Temp Pulse Resp BP BP Pulse Ox 11/22/19 07:26 36.8 C 110 H 18 123/77 96 11/21/19 23:47 37.2 C 94 H 16 132/77 95 Laboratory Results 11/22/19 11/22/19 11/20/19 Range/Units 06:21 06:21 08:03 WBC 6.33 (4.8-10.8) K/uL RBC 3.55 L (4.2-5.4) M/uL Hgb 10.2 L (12.0-16.0) g/dL Hct 32.4 L (37-47) % MCV 91.3 (80-100) fL MCH 28.7 (25-34) pg MCHC 31.5 L (32-36) g/dL RDW Std Deviation 51.2 H (36.4-46.3) fL RDW Coeff of Van 15.8 H (11.5-14.5) % Plt Count 172 (130-400) K/uL MPV 11.3 H (7.4-10.4) fL Immature Gran % (Auto) 1.3 % Neut % (Auto) 56.5 % Lymph % (Auto) 19.7 % [place] % (Auto) 15.0 % Eos % (Auto) 7.3 % Baso % (Auto) 0.2 % Neut # (Auto) 3.58 (1.4-6.5) K/uL Lymph # (Auto) 1.25 (1.2-3.4) K/uL [place] # (Auto) 0.95 H (0.11-0.59) K/uL Eos # (Auto) 0.46 (0-0.5) K/uL Baso # (Auto) 0.01 (0-0.2) K/uL Immature Gran # (Auto) 0.08 H (0.00-0.02) K/uL Sodium 141 (136-145) mmol/L Potassium 4.0 (3.5-5.1) mmol/L Chloride 107 (98-107) mmol/L Carbon Dioxide 31 (21-32) mmol/L Anion Gap 3.0 (3-11) BUN 16 (7-18) mg/dl Creatinine 0.63 (0.6-1.2) mg/dl Est Cr Clr Drug Dosing 50.7 ml/min Est GFR ( Amer) 94.1 Est GFR (Non-Af Amer) 81.2 BUN/Creatinine Ratio 24.7 H (10-20) Glucose 101 H (70-99) mg/dl Calcium 8.2 L (8.5-10.1) mg/dl Crossmatch See Detail Medications Administered Current Inpatient Medications Acetaminophen (Tylenol) 650 mg PO Q4H PRN PRN Reason: pain/fever Stop: 12/16/19 22:55 Last Admin: 11/20/19 18:30 Dose: 650 mg Documented by: Alendronate Sodium (Fosamax) 70 mg PO Tu@0630 [facility] Stop: 12/18/19 06:29 Last Admin: 11/18/19 06:17 Dose: 70 mg Documented by: Enoxaparin Sodium (Lovenox) 30 mg SQ QAM [facility] Stop: 12/18/19 08:59 Last Admin: 11/22/19 09:23 Dose: 30 mg Documented by: Levothyroxine Sodium (Synthroid) 25 mcg PO DAILYBB [facility] Stop: 12/17/19 06:29 Last Admin: 11/22/19 05:54 Dose: 25 mcg Documented by: Meclizine HCl (Antivert) 25 mg PO TID PRN PRN Reason: Dizziness or Vertigo Stop: 12/16/19 23:00 Morphine Sulfate (Morphine Sulfate) 2 mg IV Q4H PRN PRN Reason: Pain Stop: 11/30/19 22:55 Last Admin: 11/22/19 09:32 Dose: 2 mg Documented by: Multivitamins/Minerals (Caltrate Plus) 1 tab PO BID [facility] Stop: 12/17/19 08:59 Last Admin: 11/22/19 09:24 Dose: 1 tab Documented by: Naloxone HCl (Narcan) 0.1 mg IV UD PRN PRN Reason: Opioid Overdose Stop: 12/17/19 18:19 Polyethylene Glycol (Miralax Powder Packet) 17 gm PO DAILY [facility] Stop: 12/21/19 08:59 Last Admin: 11/22/19 09:24 Dose: 17 gm Documented by:
--- NOTE | 2019-11-22 11:22 | Orthopedic Progress Note ---
Date of Service November 22, 2019 Assessment & Plan (1) Closed intertrochanteric fracture of right femur: s/p Right hip long cephalomedullary nail POD#5 -DVT ppx: SCDs, TEDs, Lovenox daily -Toe touch NWB RLE; continue PT/OT -PT/OT -Drainage not unusual for the surgery considering the swelling she has in her thigh. Continue regular dressing changes. -Discharge instructions placed in EHR dc section -DC planning - [facility] when stable Admission and Anticipated Discharge Date Admission Date: November 16, 2019 Subjective Postop day 5 status post right TFN Patient is sitting up in bed awake and alert. Answering questions appropriately. Following commands. She feels that her hip is getting better. Less discomfort today. Physical Exam Physical Exam: Her thigh swelling appears to be better since I last saw her. Thigh is soft and nontender. She has developed skin blisters around some of her wounds secondary to swelling initially. She is having mild to moderate serous drainage from some of her incisions. Drainage does not look purulent. This is likely from excess swelling in her thigh. Calves are soft nontender. Neurovascular is intact. Toes are mobile. Results & Data ([facility]) Vital Signs (Past 12 Hours) Vital Signs Temp Pulse Resp BP BP Pulse Ox 11/22/19 07:26 36.8 C 110 H 18 123/77 96 11/21/19 23:47 37.2 C 94 H 16 132/77 95
[2019-11-22 17:12] LABS: Phosphorus 2.6 mg/dl (2.5-4.9)
[2019-11-23] MEDS: LEVOTHYROXINE SODIUM 25 MCG TABLET PO SCH (05:39)
--- NOTE | 2019-11-23 09:00 | Hospitalist Progress Note ---
Date of Service November 23, 2019 Assessment & Plan (1) Hip fracture: Closed intertrochanteric fracture of right femur s/p Right hip long cephalomedullary nail (11/16, by Dr. Mann) POD#6 ASSESSMENT AND PLAN: This is an 84-year-old female who presents with fall at home, mechanical fall and found to have right hip fracture at [facility]. 1. Closed intertrochanteric fracture of right femur s/p Right hip long cephalomedullary nail (11/16, by Dr. Mann) -ancef x 24, then dc -DVT ppx: SCDs, TEDs, Lovenox daily -Toe touch NWB RLE; continue PT/OT -PT/OT with appropriate for precautions -Monitor labs Resume Post Op Care per Surgery Protocol Incentive Spirometry 10x per Hour Transition from IV to PO Pain control 2. Post op Blood Loss anemia Hemoglobin 6.2 on December 17 a.m. received 2 units of PRBCs Hemoglobin below 8 (11/20/19), transfused 1 unit of PRBCs, H&H checked afterward, hemoglobin over 10 Hgb stable at 10 (11/22/19) 3. Hypothyroidism -Continue home Synthroid 4. Osteoporosis - On alendronate weekly. We will also add calcium and vitamin D. 5. History of dizziness - On meclizine p.r.n. DVT Prophylaxis Per Ortho - SCDs, TEDs, Lovenox daily, may consider to switch to aspirin 81 mg twice a day Disposition: rehab, aware Admission and Anticipated Discharge Date Admission Date: November 16, 2019 Subjective POD 6 s/p R TFN Hemoglobin 6.2 on November 17 a.m, required blood transfusion. Then hemoglobin stable at 10 Pt is laying in bed, in NAD. Denies any fever, chills, chest pain, shortness of breath. No abd. pain, n/v. Says she gets a little dizzy when she is moved from chair to bed and vice versa Awaiting placement. Review of Systems Review of Systems: All systems reviewed & are unremarkable except as noted in HPI & below Constitutional: no fever and no chills Respiratory: no cough and no dyspnea Cardiovascular: no chest pain and no palpitations Gastrointestinal: no abdominal pain, no nausea and no vomiting Physical Exam Physical Exam: Gen- elderly female lying in bed, in no acute distress, AAO x 3 Head- NCAT, EOMI, PERRL, Anicteric Sclera Neck- Supple, No JVD, No Masses Lungs- Clear to Auscultation Bilaterally, No Rales, No Rhonchi, No Wheezing Chest- RRR No Murmurs Abdomen- Soft, Bowel Sounds Present, Non Tender, Non Distended, No Rigidity, No Guarding Musculoskeletal- moves upper extremities without difficulty, able to move her toes b/l, thigh mildly tender to palpation Extremities- No Cyanosis, No Clubbing, No Edema, there is some oozing noted from her incision site on her right thigh, right thigh edema improved, significant ecchymosis noted Neuro- patient is alert and oriented answers questions appropriately, speech fluent, no facial asymmetry, moves extremities spontaneously, no sensory loss noted Psych- euthymic mood Results & Data Results & Data ([facility]) Vital Signs (Past 12 Hours) Vital Signs Temp Pulse Pulse Resp BP Pulse Ox 11/23/19 07:32 36.7 C 100 H 18 136/78 96 11/22/19 23:16 36.7 C 103 H 16 121/42 L 95 Medications Administered Current Inpatient Medications Acetaminophen (Tylenol) 650 mg PO Q4H PRN PRN Reason: pain/fever Stop: 12/16/19 22:55 Last Admin: 11/20/19 18:30 Dose: 650 mg Documented by: Alendronate Sodium (Fosamax) 70 mg PO Tu@0630 [facility] Stop: 12/18/19 06:29 Last Admin: 11/18/19 06:17 Dose: 70 mg Documented by: Enoxaparin Sodium (Lovenox) 30 mg SQ QAM [facility] Stop: 12/18/19 08:59 Last Admin: 11/22/19 09:23 Dose: 30 mg Documented by: Levothyroxine Sodium (Synthroid) 25 mcg PO DAILYBB [facility] Stop: 12/17/19 06:29 Last Admin: 11/23/19 05:39 Dose: 25 mcg Documented by: Meclizine HCl (Antivert) 25 mg PO TID PRN PRN Reason: Dizziness or Vertigo Stop: 12/16/19 23:00 Morphine Sulfate (Morphine Sulfate) 2 mg IV Q4H PRN PRN Reason: Pain Stop: 11/30/19 22:55 Last Admin: 11/22/19 13:37 Dose: 2 mg Documented by: Multivitamins/Minerals (Caltrate Plus) 1 tab PO BID [facility] Stop: 12/17/19 08:59 Last Admin: 11/22/19 20:48 Dose: 1 tab Documented by: Naloxone HCl (Narcan) 0.1 mg IV UD PRN PRN Reason: Opioid Overdose Stop: 12/17/19 18:19 Polyethylene Glycol (Miralax Powder Packet) 17 gm PO DAILY [facility] Stop: 12/21/19 08:59 Last Admin: 11/22/19 09:24 Dose: 17 gm Documented by:
[2019-11-23] MEDS: CALCIUM 600MG + VIT D 400 IU TAB PO SCH ×2 (09:16→20:43)
[2019-11-23] MEDS: ENOXAPARIN INJ 30 MG/0.3 ML SYR SQ SCH (09:16)
[2019-11-23] MEDS: POLYETHYLENE (MIRALAX) 17 GM PACK PO SCH (09:16)
[2019-11-23] MEDS ORDERED: TRAMADOL HCL 50 MG TABLET PO PRN (11:37)
[2019-11-23] MEDS: ACETAMINOPHEN 325 MG TAB PO PRN (12:29)
[2019-11-24 06:15] LABS: Hematocrit (blood only) 33.2 % (37-47); Hemoglobin 10.6 g/dL (12.0-16.0)
[2019-11-24] MEDS: LEVOTHYROXINE SODIUM 25 MCG TABLET PO SCH (06:24)
[2019-11-24] MEDS: POLYETHYLENE (MIRALAX) 17 GM PACK PO SCH (08:07)
[2019-11-24] MEDS: ACETAMINOPHEN 325 MG TAB PO PRN (08:09)
[2019-11-24] MEDS: CALCIUM 600MG + VIT D 400 IU TAB PO SCH (08:10)
[2019-11-24] MEDS: ENOXAPARIN INJ 30 MG/0.3 ML SYR SQ SCH (08:10)
--- NOTE | 2019-11-24 08:40 | Hospitalist Progress Note ---
Date of Service November 24, 2019 Assessment & Plan (1) Hip fracture: Closed intertrochanteric fracture of right femur s/p Right hip long cephalomedullary nail (11/16, by Dr. Mann) POD#7 ASSESSMENT AND PLAN: This is an 84-year-old female who presents with fall at home, mechanical fall and found to have right hip fracture at [facility]. 1. Closed intertrochanteric fracture of right femur s/p Right hip long cephalomedullary nail (11/16, by Dr. Mann) -ancef x 24, then dc -DVT ppx: SCDs, TEDs, Lovenox daily (for 4 weeks) -Toe touch NWB RLE; continue PT/OT -PT/OT with appropriate for precautions Incentive Spirometry PO Pain control, for pain, patient only requires Tylenol 2. Post op Blood Loss anemia Hemoglobin 6.2 on December 17 a.m. received 2 units of PRBCs Hemoglobin below 8 (11/20/19), transfused 1 unit of PRBCs, H&H checked afterward, hemoglobin over 10 Hgb stable at 10 (11/22/19) 3. Hypothyroidism -Continue home Synthroid 4. Osteoporosis - On alendronate weekly. We will also add calcium and vitamin D. 5. History of dizziness - On meclizine p.r.n. DVT Prophylaxis Per Ortho - SCDs, TEDs, Lovenox daily, may consider to switch to aspirin 81 mg twice a day Disposition: rehab, aware Admission and Anticipated Discharge Date Admission Date: November 16, 2019 Subjective POD 7 s/p R TFN (11/24/2019) Hemoglobin 6.2 on November 17 a.m, required blood transfusion. Then hemoglobin stable at 10 Pt is laying in bed, in NAD. Denies any fever, chills, chest pain, shortness of breath. No abd. pain, n/v. Plan to discharge to rehab. For pain only requiring Tylenol. Review of Systems Review of Systems: All systems reviewed & are unremarkable except as noted in HPI & below Constitutional: no fever and no chills Respiratory: no cough and no dyspnea Cardiovascular: no chest pain and no palpitations Gastrointestinal: no abdominal pain, no nausea and no vomiting Physical Exam Physical Exam: Gen- elderly female lying in bed, in no acute distress, AAO x 3 Head- NCAT, EOMI, PERRL, Anicteric Sclera Neck- Supple, No JVD, No Masses Lungs- Clear to Auscultation Bilaterally, No Rales, No Rhonchi, No Wheezing Chest- RRR No Murmurs Abdomen- Soft, Bowel Sounds Present, Non Tender, Non Distended, No Rigidity, No Guarding, soft hernia Musculoskeletal- moves upper extremities without difficulty, able to move her t oes b/l, thigh mildly tender to palpation Extremities- No Cyanosis, No Clubbing, No Edema, there is mild oozing noted from her incision site on her right thigh, right thigh edema improved, R thigh ecc hymosis Neuro- patient is alert and oriented answers questions appropriately, speech fluent, no facial asymmetry, moves extremities spontaneously, no sensory loss noted Psych- euthymic mood Results & Data Results & Data ([facility]) Vital Signs (Past 12 Hours) Vital Signs Temp Pulse Resp BP BP Pulse Ox 11/24/19 07:34 36.6 C 105 H 18 118/61 94 11/23/19 23:56 36.8 C 100 H 14 129/72 96
--- NOTE | 2019-11-24 11:28 | Discharge Summary ---
Date of Service November 24, 2019 Admission HPI Per Admitting Provider This 84-year-old female with past medical history significant for senile osteoporosis, vitamin D deficiency, bilateral hearing loss, history of left hip fracture, who was transferred from [facility] for right hip fracture. The patient lives alone. She has a walker and cane at home. Generally, she does not use it, but since last one week she is using cane because she was feeling dizzy and her family doctor gave her meclizine .. She lives alone. One daughter lives close across the street, today she went to water her plants and go and she was going to go back home and her side walk is little raised and she tripped over it and fell down and she could not get up and she yelled for help, and stayed there for about almost of an hour and then she was taken to the [facility]. On the way to [facility], she was nauseous and had some vomiting. In the [facility], CT of the head and CT of the cervical spine was unremarkable and the x-rays showed displaced intertrochanteric fracture of the right hip and was transferred to [facility]. The patient is currently resting comfortably and hemodynamically stable. She says she did not have much pain now. Otherwise, she says she is doing fine. Denies any other complaints. She says she is on regular diet. She can swallow okay. Denies any cough, no fever, no chills, no shortness of breath, no chest pain, no loss of sense of smell or taste. No headache. She uses glasses for vision. Somewhat hard of hearing. No runny nose, no sore throat. No abdominal pain. Normal bowel and bladder movements. No blood in the stools or burning micturition. No rash anywhere. Also spoke with her daughter, Ms. Juarez who confirmed what happened and the daughter says the patient has a note at home that she is DNR, but when asked about whether there is a chance of recovery still they want to be DNR, but daughter says only for a very short period of time she can be full code if there is a chance of recovery. Admission Exam Per Admitting Provider GENERAL: The patient is old and frail, not in acute distress. VITAL SIGNS: temperature 36.4, respiratory rate 20, blood pressure 125/69, oxygen 95% on room air. HEENT: No pallor, no icterus. NECK: No JVD, no neck masses. CARDIOVASCULAR: S1, S2 heard, regular rate and rhythm, no murmur, no gallop. RESPIRATORY SYSTEM: Normal AP diameter. No accessory muscle use. No wheezing, no crackles. ABDOMEN: Soft, bowel sounds present, nontender. No distention. CENTRAL NERVOUS SYSTEM: Alert and oriented x3. Can tell today is October 2019, but has some difficulty with dates, can tell her date of , obeys simple commands. Speech is clear. Insight is good. EXTREMITIES: Right lower extremity is shortened and externally rotated. No erythema seen. No edema seen. Principal Diagnosis Right hip fracture, status post right hip trochanteric nail Discharge Exam Gen- elderly female lying in bed, in no acute distress, AAO x 3 Head- NCAT, EOMI, PERRL, Anicteric Sclera Neck- Supple, No JVD, No Masses Lungs- Clear to Auscultation Bilaterally, No Rales, No Rhonchi, No Wheezing Chest- RRR No Murmurs Abdomen- Soft, Bowel Sounds Present, Non Tender, Non Distended, No Rigidity, No Guarding, soft hernia Musculoskeletal- moves upper extremities without difficulty, able to move her toes b/l, thigh mildly tender to palpation Extremities- No Cyanosis, No Clubbing, No Edema, there is mild oozing noted from her incision site on her right thigh, right thigh edema improved, R thigh ecchymosis Neuro- patient is alert and oriented answers questions appropriately, speech fluent, no facial asymmetry, moves extremities spontaneously, no sensory loss noted Psych- euthymic mood Discharge Data Allergies Allergy/AdvReac Type Severity Reaction Status Date / Time No Known Allergies Allergy Unverified 11/16/19 22:55 Consultations 11/16/19 22:56 Consult Case Management - Discharge Planning Routine 11/17/19 08:00 Consult Orthopedic Surgery Routine 11/17/19 18:20 Consult Case Management - Discharge Planning Routine Procedures Performed Operation Date: 11/17/19 10:00 Actual Procedures p Right Hip Trochanteric Nail (Right) - El Mann DO Ordered Studies 11/17/19 12:30 FL fluoroscopy <1hr Routine FL hip RT 2-3V Routine Hospital Course (1) Hip fracture: Closed intertrochanteric fracture of right femur s/p Right hip long cephalomedullary nail (11/16, by Dr. Mann) POD#7 ASSESSMENT AND PLAN: This is an 84-year-old female who presents with fall at home, mechanical fall and found to have right hip fracture at [facility]. 1. Closed intertrochanteric fracture of right femur s/p Right hip long cephalomedullary nail (11/16, by Dr. Mann) -ancef x 24, then dc -DVT ppx: SCDs, TEDs, Lovenox daily (for 4 weeks) -Toe touch NWB RLE; continue PT/OT -PT/OT with appropriate for precautions Incentive Spirometry PO Pain control, for pain, patient only requires Tylenol 2. Post op Blood Loss anemia Hemoglobin 6.2 on December 17 a.m. received 2 units of PRBCs Hemoglobin below 8 (11/20/19), transfused 1 unit of PRBCs, H&H checked afterward, hemoglobin over 10 Hgb stable at 10 (11/22/19) 3. Hypothyroidism -Continue home Synthroid 4. Osteoporosis - On alendronate weekly. We will also add calcium and vitamin D. 5. History of dizziness - On meclizine p.r.n. DVT Prophylaxis Per Ortho - SCDs, TEDs, Lovenox daily, may consider to switch to aspirin 81 mg twice a day Disposition: rehab, CM aware Total Time Total Time Spent Total Time Spent (In Minutes): 35 Total Time Includes: Examination of the Patient, Discharge Planning, Medication Reconciliation and Communication With Other Providers Discharge Plan Discharge Items Patient Disposition: Transfer Inpatient Rehab Fac Reason For Visit: R HIP FX Discharge Diagnosis: Right hip fracture, status post right hip trochanteric nail Activity: Per Instructions section Non-emergency contact: Primary Care Provider and Surgeon Call non-emergency contact if: you have any medication questions and your symptoms worsen Follow-up/Referrals: Ana Luisa Foster DO [Primary Care Provider] - Diet: Regular Addtl Attending Provider Instructions: Recommend to follow-up with primary care doctor within 1 week after leaving rehab. For pain you can take Tylenol, up to 3000 mg a day. For more severe pain, you can use tramadol as prescribed. Please read instructions from your orthopedic surgeon below, in detail. Addtl Site Administrator Provider Instructions: [facility] DISCHARGE INSTRUCTIONS: HIP FRACTURE SELF CARE INSTRUCTIONS: A. You are to ambulate with a walker or crutches for approximately 6 weeks. B. You are TOE TOUCH WEIGHT BEARING on your operative lower extremity for at least 6 weeks. C. Wear low heeled shoes with non-slip soles D. Be sure that your floors are free of things that could trip you throw rugs, electrical cords, and small objects. Avoid wet and waxed floors, especially with crutches/walker/cane. E. Try to walk several times a day with rest periods between. F. You may shower 48 hours after surgery and get the incision area wet, but DO NOT soak or submerge incision area in water. (No baths, swimming pools, hot tubs) G. You may have a large, band-aid like dressing over your incision (Aquacel). This will remain on your incision for 7 days, and then can be removed. You CAN shower with this on. If incision is leaking through the dressing, please call the office . H. Do NOT apply soap or any ointment/lotions directly over incision. I. You may use ice as needed to operative site. SPECIAL CARE INSTRUCTIONS: VERY IMPORTANT TO READ AND REVIEW A. You may be at risk for phlebitis or blood clots. a. Wear surgical stockings (NALLELY hose) for 2 weeks after surgery to improve circulation and reduce swelling. b. Take LOVENOX 30mg SQ daily for 4 weeks or as directed. This is your blood thinner. . B. There are a few signs you need to watch for after you are home. Call [facility] at [phone] if you experience any of the following: a. If you have a temperature of 101 degrees or higher. b. Sudden increase in pain in your hip not relieved by rest or pain medication. c. Any fluid or drainage from the incision; redness of the incision. d. Shortness of breath or chest pain. C. Call your physician if: a. Temperature is greater than 101 degrees (F). b. Pain is not relieved by prescribed pain medications. c. Increase drainage or redness from incision. d. Unanswered questions or concerns. D. Pain Medication: a. You will be prescribed pain medication upon discharge that should last till your first post-operative appointment. b. If you experience nausea and/or skin rash, discontin ue this medication and contact our office for an alternative medication. c. Caution- narcotic pain medication can cause constipation. FOLLOW UP VISIT: Please call [facility] at [phone] to schedule a follow up appointment with Dr. Mann in 10-14 days from the date of your surgery date. Pending Studies at Discharge: No Stand-Alone Forms: My [facility], Opioid Pain Management Skilled Items Patient informed of condition?: Yes DNR: No Discharge Level of Care: Acute rehab Communicable Disease: No Discharge Prognosis: Stable Lines: None Urinary Catheter: No Medications and DC Order Prescriptions: New acetaminophen 325 mg Tablet 650 mg PO Q4H PRN (Reason: pain) 30 Days Qty: 30 RF: 0 enoxaparin [Lovenox] 30 mg/0.3 mL Syringe 30 mg subcut QAM 21 Days Qty: 6.3 RF: 0 Caltrate 600-D Plus Minerals 600 mg calcium- 800 unit-50 mg Tablet 1 tab PO BID 30 Days Qty: 60 RF: 0 tramadol 50 mg Tablet 50 mg PO Q4H PRN (Reason: pain) 4 Days Qty: 7 RF: 0 Continued alendronate 70 mg tablet 70 mg PO WK RF: 0 levothyroxine 25 mcg tablet 25 mcg PO DAILY RF: 0 meclizine 25 mg tablet 25 mg PO TID PRN (Reason: Dizziness) RF: 0 Discharge Orders: Discharge Order (Routine); Ordered 11/24/19 Ordered By: Rasta Baptiste/Other Patient Handouts: Hip Arthroscopy: After Surgery, How Your Hip W orks Admission Data Admit Date/Time: 11/16/19 21:15 Attending Provider: Rasta Harrington Admit Provider: Simón Torres Primary Care Provider: Ana Luisa Foster Other Providers: El Mann ; [facility] ; Florencio Anderson ; [facility] ; [facility]
== END 2019-11-24 14:13 | DRG 481 ==
LOC: SUATTDRO 21:15 → 3W 21:15 → 3N 11-18 05:28